=== PATIENT | male | born 1945 | race Caucasian/White ===

== ENCOUNTER 2016-05-17 05:37 | Day surgery (SDC) | payer OTHER, MEDICARE ==
--- NOTE | 2016-05-14 12:55 | PCM.ANEPRE ---
Anesthesia Pre-Op Review Reason for Review: CARDIAC HX Anesthesia Recommendations: Proceed with Procedure Additional Comments history of CAD, stent currntly walks 20K steps per day history of heart block in face of hypovolemia with GI bleed SR now. On small doses of B mona DESTINI CPAP asess airway DOS Chart Reviewed by: Snow Lopez MD May 14, 2016 12:55
[~2016-05-17] VITALS: Ht 185.4 cm; Wt 105.0 kg
[2016-05-17] VITALS (12 sets, daily range): BP systolic 122–158; BP diastolic 55–82; PULSE 46–58; RESP 9–20; O2SAT 96–100
[~2016-05-17 05:37] MED LIST: ASPI-973 PO; ATOR80TA77 PO; CHOL5000 PO; GARL10002 PO; LACT1CAP73 PO; LORA10CA PO; Lactated Ringer's 1,000 ML IV ONE; METO25TA99 PO; MULT1CAP27 PO; OMEG-38 PO; PANT40TA3 PO; SAW/1TAB2 PO; TAMS0.4C98 PO
[2016-05-17] MEDS ORDERED: Ondansetron 2 mg/mL 2 mL Inj ONE (05:38)
[2016-05-17] MEDS ORDERED: fentaNYL-PF 50 mCg/mL 2 mL Inj ONE (05:38)
[2016-05-17] MEDS ORDERED: Propofol 10,000 mCg/mL 20 mL Inj ONE (05:38)
[2016-05-17] MEDS ORDERED: Lidocaine PF 1% 30 mL Inj ONE (05:38)
[2016-05-17] MEDS ORDERED: Dexamethasone 10 mg/mL Inj IV ONE (06:00)
[2016-05-17] MEDS ORDERED: Dexamethasone Inj 20 MG in Dextrose 5%-Pha MIX 50 ML IV ONE (06:00)
[2016-05-17] MEDS ORDERED: Lactated Ringer's 1,000 ML IV ONE (06:09)
[2016-05-17] MEDS ORDERED: Lidocaine 2%-Epi 1:100,000 20 mL Inj INFILTRATE ONE (07:30)
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
[2016-05-17] MEDS ORDERED: Phenylephrine 10,000 mCg/mL Inj IVPUSH PRN (07:55)
[2016-05-17] MEDS ORDERED: Dexamethasone 4 mg/mL Inj IVPUSH PRN (07:55)
[2016-05-17] MEDS ORDERED: Atropine 0.4 mg/mL Inj IVPUSH PRN (07:55)
[2016-05-17] MEDS ORDERED: fentaNYL-PF 50 mCg/mL 2 mL Inj IVPUSH PRN (07:55)
[2016-05-17] MEDS ORDERED: Ondansetron 2 mg/mL 2 mL Inj IVPUSH PRN (07:55)
[2016-05-17] MEDS ORDERED: Lactated Ringer's 1,000 ML IV SCH (07:55)
[2016-05-17] MEDS ORDERED: EPHEDrine Sulfate 50 mg/mL Inj IVPUSH PRN (07:55)
[2016-05-17] MEDS ORDERED: MetoCLOpramide 5 mg/mL 2 mL Inj IVPUSH PRN (07:55)
[2016-05-17] MEDS ORDERED: Labetalol 5 mg/mL 4 mL Inj IV PRN (07:55)
[2016-05-17] MEDS ORDERED: HYDROmorphone 1 mg/mL Inj IVPUSH PRN (07:55)
[2016-05-17] MEDS ORDERED: hydrALAZINE 20 mg/mL Inj IVPUSH PRN (07:55)
[2016-05-17] MEDS ORDERED: Lactated Ringer's 500 ML IV PRN (07:55)
--- NOTE | 2016-05-17 08:20 | OP ---
[address] [address] OPERATIVE REPORT PATIENT: ANTOINETTE SARMIENTO : 1945 MR#: [id number] ADMIT: 05/17/2016 JOB ID: [id number] DATE OF SURGERY: PREOPERATIVE DIAGNOSIS(ES): 1. Nasal obstruction with septal deviation. 2. Turbinate hypertrophy. POSTOPERATIVE DIAGNOSIS(ES): 1. Nasal obstruction with septal deviation. 2. Turbinate hypertrophy. PROCEDURE: 1. Septoplasty. 2. Submucosal treatment of turbinates. SURGEON: Jerardo Natarajan MD HISTORY/INDICATIONS: A 70-year-old with chronic nasal obstruction with septal deviation, turbinate hypertrophy interfering with use of CPAP. DESCRIPTION OF PROCEDURE/FINDINGS: The patient was taken to the operative room, placed in the supine position on the operating table. LMA anesthesia induced. The nose was inspected. The hypertrophied turbinates were injected with 2% lidocaine 100,000 epinephrine. The septum shows significant deflection to the left with a large maxillary crest spur. Septum was injected with the same local. The nose was then packed with Afrin on cotton. After allowing adequate time for local anesthetic, the packings were removed. With a 15 blade, an incision made on the right anterior septum. With a Manuel elevator, the mucoperichondrium and periosteum were elevated. The quadrangular cartilage was dislocated from its attachments to the perpendicular plate of the ethmoid, the vomer and the maxillary crest. With a Jon stripper and Ella, the obstructing portions of the bony septum were removed, including the maxillary crest spur. The anterior incision was closed with interrupted 4-0 chromic after placing the quadrangle cartilage back in the midline. The septum is then mattressed with multiple interrupted 4-0 plain suture. Silastic splints were fashioned, placed on either side of the septum and secured with a through and through 4-0 nylon. A stab incision made on the anterior tip of the inferior turbinates bilaterally. With a [place] elevator, the turbinate bone was exposed. Portions were removed with the Ella. Further submucosal treatment was undertaken with the suction cautery. Merocel packs were placed in the nasal cavity, saturated with Afrin. The patient is awakened in the operative room, returned to the recovery room in good condition. ESTIMATED BLOOD LOSS: Less than 20 cc. SPECIMENS: None. COMPLICATIONS: None.
--- NOTE | 2016-05-17 08:21 | PCM.ANEP1 ---
Post Anesthesia Phase 1 PACU Phase 1 Assessment Date of Service: May 17, 2016 Vital Signs Vital Signs Date Time Temp Pulse Resp B/P Pulse Ox O2 Delivery O2 Flow Rate FiO2 05/17/16 08:07 36.2 58 9 123/55 100 Simple Mask 8 05/17/16 06:10 36.1 50 20 135/82 96 Room Air Anesthetic Administered: GA Level of Alertness: Sleepy, easy to arouse ALONSO's with Equal Strength: Yes Pain: No Nausea or Vomiting: No Oxygen Delivery: Simple Mask Lungs: Normal Air Movement Star Beltran MD May 17, 2016 08:20
[2016-05-17] MEDS ORDERED: HYDROmorphone 0.5 mg/0.5 mL iSecure Syringe ONE ×2 (08:22→08:31)
--- NOTE | 2016-05-17 08:56 | PCM.ANEP2 ---
Post Anesthesia Evaluation ASA/CMS Post Anesthesia Date of Service: May 17, 2016 VS in Patient's Normal Range?: Yes Resp Stable; Airway Patent?: Yes CV Function & Hydration Stable: Yes Mental Status Recovered?: Yes Pain control Satisfactory?: Yes N/V Control Satisfactory?: Yes Star Beltran MD May 17, 2016 08:56
== END 2016-05-17 23:59 | disposition home or self-care (01) ==
LOC: SAS 05:37
PROVIDERS: ATTEND Otolaryngology Facial Plastic Surgery
DX: J34.2 Deviated nasal septum (principal); J34.3 Hypertrophy of nasal turbinates; G47.33 Obstructive sleep apnea (adult) (pediatric); I10 Essential (primary) hypertension; I25.10 Atherosclerotic heart disease of native coronary artery without angina pectoris; Z95.5 Presence of coronary angioplasty implant and graft
CPT/HCPCS: 30140; 30520; J1170; J2405; J3010; J7120

== ENCOUNTER 2016-05-23 16:58 | Emergency (ER) | payer OTHER, MEDICARE ==
[~2016-05-23] VITALS: Ht 185.4 cm; Wt 105.0 kg
[~2016-05-23 16:58] MED LIST changes: -Lactated Ringer's 1,000 ML IV ONE
[2016-05-23 17:17] VITALS: BP 143/73; PULSE 55; RESP 20; O2SAT 97
--- NOTE | 2016-05-23 19:12 | ED.REPORT ---
HPI-Extremity Problem Lower Date of Service May 23, 2016 ED Provider: Héctor Garrison DO A 70 year old male with a history of spinal stenosis and cardiac stent placement presents to the ED complaining of right leg pain. The pt woke up at 03 :00 this morning due to pain in his upper right thigh radiating into his right buttock. The pt is concerned that his pain may be related to a clot and his PCP recommended that he come to the ED for a DVT study. Nursing Notes Stated Complaint: RIGHT LEG PAIN/SENT FROM DR OFFICE Chief Complaint: Extremity Trauma Nursing Notes Reviewed: Yes Allergies: Coded Allergies: Contrast Media (Verified Allergy, Severe, anaphalyxis, 05/13/16) Patient uses iodine on his skin without untoward effect. meprobamate (Verified Allergy, Severe, RESPIRATORY DISTRESS, 05/13/16) Iodinated Contrast Media - Oral and (Verified Allergy, Unknown, stops breathing, 05/13/16) oxycodone HCl (Verified Allergy, Unknown, UNKNOWN, 05/13/16) codeine (Verified Adverse Reaction, Severe, BURNING SKIN, 05/13/16) gabapentin (Verified Adverse Reaction, Severe, FATIGUE,FREQUENCY, 05/13/16) pregabalin (Verified Adverse Reaction, Severe, FATIGUE,FREQUENCY, 05/13/16) Scheduled Aspirin (Aspirin) 81 Mg Tablet 81 MG PO DAILY Atorvastatin Calcium (Atorvastatin Calcium) 80 Mg Tablet 80 MG PO HS Cholecalciferol (Vitamin D3) (Vitamin D3) 5,000 Unit Capsule 5,000 UNIT PO DAILY Garlic (Garlic) 1,000 Mg Capsule 2,000 MG PO DAILY Lactobacillus Combo No.11 (Probiotic) 1 Each Cap.sprink 1 EACH PO DAILY Metoprolol Succinate ER (Metoprolol Succinate ER) 25 Mg Tab.er.24h 25 MG PO DAILY Multivits-Min/Hrb Cb121 (Urinozinc Prostate Formula Cap) 1 Each Capsule 1 EACH PO DAILY [place]-3/Dha/Epa/Fish Oil (Fish Oil 1,000 mg Softgel) 1 Each Capsule 1 EACH PO DAILY Pantoprazole DR (Pantoprazole DR) 40 Mg Tablet.dr 40 MG PO BIDAC Saw/Vit E/Sod Rosita/Lyc/Beta/Pyg (Prostate Health Caplet) 1 Each Tablet 1 EACH PO DAILY Tamsulosin (Flomax) 0.4 Mg Capsule 0.4 MG PO BID Scheduled PRN Loratadine (Claritin) 10 Mg Capsule 10 MG PO DAILY PRN PRN allergies General Time Seen by MD: 19:12 Chief Complaint Other (Right leg pain) Hx Obtained From: Patient Arrived By: Walk-in Onset Occurred: 1 day ago Symptom Duration: Since onset Recent Healthcare: No recent hospitalization, Recent doctor visit Similar Sx Previous: No Past Medical History Past Medical History sleep apnea on CPAP spinal stenosis Past Surgical History cardiac stent placement Family History noncontributory Smoking History Never Smoker Social History Alcohol Use: Denies alcohol use Drug Use: Denies drug use Other Social History: Good social support, , Local resident 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 Respiratory: Denies: Non-productive cough Cardiovascular: Denies: Chest pain GI: Denies: Abdominal pain Physical Exam Initial Vital Signs Vital Signs (First) Date Time Temp Pulse Resp B/P Pulse Ox O2 Delivery O2 Flow Rate FiO2 05/23/16 17:17 36.4 55 20 143/73 97 Room Air Initial VS: Reviewed Lower Extremity / Pelvis / MS: Atraumatic, Full range of motion full range of motion of right leg right thigh tender to palpation Ankle / Foot: Atraumatic, Full range of motion General/Constitutional: Awake, Alert moderate distress due to pain Respiratory / Chest: Atraumatic, Breath sounds NL, Breath sounds = bilat, No respiratory distress Cardiovascular: Heart rate NL, Regular rhythm, Heart sounds NL bounding dorsalis pedis pulses strong femoral pulses Skin: Atraumatic, Color NL, No rash, Warm, Dry Neurologic: Oriented X3, Speech NL, No motor deficits, No sensory deficits Head / Eyes: Atraumatic, Normocephalic, PERRL, EOMI ENT: Atraumatic, Airway patent, Mucous membranes moist Neck: Atraumatic, Supple, Full range of motion Abdomen: Atraumatic, Soft, Non-tender Back: Atraumatic, Full range of motion Upper Extremity / MS: Atraumatic, Full range of motion Psychiatric: Affect NL, Mood NL Interpretation & Diagnostics Interpretation & Diagnostics: Hip/Pelvis X-Ray: IMPRESSION: 1. No fracture or dislocation. 2. Soft tissue calcifications. Differential diagnoses include calcific tendinitis, myositis ossificans and nonspecific dystrophic soft tissue calcification. Dictated by: Neli Booker M.D. on 05/23/2016 at 20:31 Approved by: Neli Booker M.D. on 05/23/2016 at 20:36 Venous Duplex US: IMPRESSION: No deep venous thrombosis in the right lower extremity. Dictated by: Neli Booker M.D. on 05/23/2016 at 19:37 Approved by: Neli Booker M.D. on 05/23/2016 at 19:37 Lab Results Interpretation Result Diagram: 05/23/16 1853 05/23/16 1853 Test 05/23/16 18:53 White Blood Count 6.1th/mm3 (3.8-10.1) Red Blood Count 4.76mil/mm3 (4.40-5.80) Hemoglobin 14.1g/dL (13.8-17.2) Hematocrit 41.1% (41.0-50.0) Mean Corpuscular Volume 86.3fL (81-100) Mean Corpuscular Hemoglobin 29.6pg (27.0-35.0) Mean Corpuscular Hemoglobin Concent 34.3% (32.0-37.0) Red Cell Distribution Width 14.0% (12.3-15.4) Platelet Count 138bil/L (150-400) Neutrophils (%) (Auto) 58.1% (40-74) Lymphocytes (%) (Auto) 24.1% (14-46) Monocytes (%) (Auto) 12.1% (4-12) Eosinophils (%) (Auto) 3.9% (0-5) Basophils (%) (Auto) 1.0% (0-3) Sodium Level 140mEq/L (134-144) Potassium Level 4.6mEq/L (3.5-5.2) Chloride Level 100mEq/L (97-108) Carbon Dioxide Level 27mmol/L (18-29) Blood Urea Nitrogen 21mg/dL (8-27) Creatinine 0.72mg/dL (0.76-1.27) Estimat Glomerular Filtration Rate 114mL/min (>59) Glucose Level 128mg/dL (60-99) Calcium Level 9.4mg/dL (8.5-10.1) Magnesium Level 2.0mg/dL (1.6-2.6) Total Bilirubin 0.4mg/dL (0.0-1.2) Aspartate Amino Transf (AST/SGOT) 26U/L (0-50) Alanine Aminotransferase (ALT/SGPT) 23U/L (0-44) Alkaline Phosphatase 96U/L (25-160) Total Protein 6.7g/dL (6.4-8.4) Albumin 4.0g/dL (3.4-5.0) [address] Top Tube Received (Received) Pulse Oximetry Interpretation Pulse Oximetry Interpretation: 97% on room air Pulse Oximetry: Pulse Ox normal Re-Eval/Medical Decision Med Decision/Clinical Course DVT ruled out based on ultrasound findings. Acute arterial insufficiency ruled out based on palpable pulses, warm skin and symmetric ankle blood pressures. Ankle brachial index. Emergent arterial evaluation not indicated. Fracture of pelvis ruled out. I think that Mr. Jaimes has either referred pain from his spinal stenosis or possibly strained or did something to his thigh. Most of the pain is over his tensor fascia yoli. Certainly no signs of an infection. His pain was treated completely with Dilaudid. As it were he has oral Dilaudid at home. I encouraged him to take this as prescribed and to see his doctor in follow-up on Tuesday. Source of Hx: Old records Re-Evaluation/Progress : Time of Eval: 21:02 Patient Status: Condition improved Re-Evaluation/Progress Note: Pt rechecked, who is pain free. US and radiology results are discussed. The plan for discharge is discussed. The pt understands and agrees with the plan. All questions are addressed at this time. Counseled Regarding: Diagnosis, Lab results, Need for follow-up, When/why to return to ED Discharge & Departure Impression: Primary Impression: Right thigh pain Disposition: Home Discharge Condition All VS Reviewed: Yes Condition: Stable Patient Instructions: Leg Cramps (ED), Lumbar Spinal Stenosis (ED) Additional Instructions: The ultrasound did not demonstrate evidence of a deep vein thrombosis. The ankle blood pressure is normal. You have bounding pulses in your feet. An acute arterial or venous condition seems unlikely as the cause of your pain. The x-rays show that you have no signs of fracture however you do have evidence of calcium deposition. The pain may also be related to spinal stenosis. Use the medications as prescribed from your nose surgeon. Call your doctor's office on Tuesday for follow-up. I would like you to stay off work until next week Tuesday. Do not drive tonight as you receive sedating medications. Return if any problems or any worsening symptoms. Remainder of the laboratory work was normal and reassuring. Referrals: Hossein Darden MD (PCP) Scribe Attestation Portions of this note were transcribed by aLuren Carranza. I, Dr. Garrison personally performed the history, physical exam and medical decision-making; I reviewed and confirmed the accuracy of the information in the transcribed note. Signed by: Roselyn Matias, 05/23/2016 and 21:23. copies to: Hossein Darden MD, Todd P DO May 23, 2016 19:12 LAUREN CARRANZA May 23, 2016 19:37
[2016-05-23 19:15] LABS: EOSINOPHILS % (AUTO) 3.9 % (0-5); MONOCYTES % (AUTO) 12.1 % (4-12); Mean Corpuscular Hemoglobin 29.6 pg (27.0-35.0); Mean Corpuscular Volume 86.3 fL (81-100); NEUTROPHILS % (AUTO) 58.1 % (40-74); Platelet Count 138 bil/L (150-400)
[2016-05-23] MEDS ORDERED: Ondansetron 2 mg/mL 2 mL Inj IVPUSH PRN (19:20)
--- NOTE | 2016-05-23 19:38 | DRSVH ---
PROCEDURE: US VEINOUS LEG DUPLEX UNILATERAL, RIGHT INDICATIONS: right leg pain, sent from [facility] for US TECHNIQUE: Real-time imaging, as well as color and pulse Doppler interrogation, were performed of the lower extr emity deep veins from the inguinal ligament to the popliteal fossa. COMPARISON: None. FINDINGS: The deep veins are normally compressible, and free of intraluminal thrombus. Color and pu lse Doppler demonstrate normal phasic intraluminal flow. There is normal augmentation response to di stal compression maneuver. IMPRESSION: No deep venous thrombosis in the right lower extremity. Dictated by: Neli Booker M.D. on 05/23/2016 at 19:37 Approved by: Neli Booker M.D. on 05/23/2016 at 19:37
[2016-05-23 19:52] VITALS: BP 159/81
[2016-05-23] MEDS: HYDROmorphone 0.5 mg/0.5 mL iSecure Syringe IVPUSH PRN ×2 (19:52→20:18)
[2016-05-23 19:53] VITALS: BP 164/81
--- NOTE | 2016-05-23 20:36 | DRSVH ---
PROCEDURE: X-RAY PELVIS W/LAT HIP (RT) ([id number]) INDICATIONS: right thigh and hip pain TECHNIQUE: AP pelvis with lateral view(s) of the right hip(s). COMPARISON: [facility], CT, ABD/PELVIS W/O CON (PNL), 04/11/2014, 16:34. FINDINGS: Bones: No fractures or dislocations. Pelvic ring appears intact. No suspicious bony lesions. Soft tissues: The visualized bowel gas pattern is normal. There are soft tissue calcifications/ossif ications in the medial aspect of the right thigh. IMPRESSION: 1. No fracture or dislocation. 2. Soft tissue calcifications. Differential diagnoses include calcific tendinitis, myositis ossifican s and nonspecific dystrophic soft tissue calcification. Dictated by: Neli Booker M.D. on 05/23/2016 at 20:31 Approved by: Neli Booker M.D. on 05/23/2016 at 20:36
[2016-05-23 21:05] VITALS: BP 119/59; PULSE 49; RESP 20
== END 2016-05-23 21:07 | disposition home or self-care (01) ==
LOC: SED 16:58
DX: M79.651 Pain in right thigh (principal); Z95.5 Presence of coronary angioplasty implant and graft; Z79.82 Long term (current) use of aspirin; Z88.5 Allergy status to narcotic agent; Z88.8 Allergy status to other drugs, medicaments and biological substances; Z91.041 Radiographic dye allergy status
CPT/HCPCS: 36415; 73501; 80053; 83735; 85025; 93971; 96374; 96375; 96376; 99285; J1170; J2405

== ENCOUNTER 2016-06-05 12:19 | Inpatient (IN) | payer OTHER, MEDICARE ==
[~2016-06-05] VITALS: Ht 185.4 cm; Wt 114.8 kg
[2016-06-05] VITALS (7 sets, daily range): BP systolic 108–188; BP diastolic 31–69; PULSE 60–101; RESP 16–20; O2SAT 88–96
--- NOTE | 2016-06-05 12:37 | ED.REPORT ---
HPI-Back Pain 40 and Over Date of Service Jun 05, 2016 ED Provider: Orlando Rodríguez MD Patient is a 70 year old male with a history of a laminectomy who presents to the ED after being referred by his PCP complaining of lower back pain onset 2 weeks ago without a known mechanism of injury. Associated symptoms include R leg pain secondary to his back pain and weakness in the R leg. His weakness has gotten increasingly worse since his pain started 2 weeks ago. His pain has been increasing the last two days and has not had relief with PO Dilaudid (4 mg every 4-6 hrs). He denies numbness, incontinence, saddle numbness, fever, or any other symptoms. He has an MRI scheduled in 5 days. Before the onset of his symptoms he was ambulatory but is now using a walker. Nursing Notes Stated Complaint: LOWER BACK PAIN Chief Complaint: Back Pain or Injury Nursing Notes Reviewed: Yes Allergies: Coded Allergies: Contrast Media (Verified Allergy, Severe, anaphalyxis, 05/13/16) Patient uses iodine on his skin without untoward effect. meprobamate (Verified Allergy, Severe, RESPIRATORY DISTRESS, 05/13/16) Iodinated Contrast Media - Oral and (Verified Allergy, Unknown, stops breathing, 05/13/16) oxycodone HCl (Verified Allergy, Unknown, UNKNOWN, 05/13/16) codeine (Verified Adverse Reaction, Severe, BURNING SKIN, 05/13/16) gabapentin (Verified Adverse Reaction, Severe, FATIGUE,FREQUENCY, 05/13/16) pregabalin (Verified Adverse Reaction, Severe, FATIGUE,FREQUENCY, 05/13/16) Scheduled Aspirin (Aspirin) 81 Mg Tablet 81 MG PO DAILY Atorvastatin Calcium (Atorvastatin Calcium) 80 Mg Tablet 80 MG PO HS Cholecalciferol (Vitamin D3) (Vitamin D3) 5,000 Unit Capsule 5,000 UNIT PO DAILY Garlic (Garlic) 1,000 Mg Capsule 2,000 MG PO DAILY Lactobacillus Combo No.11 (Probiotic) 1 Each Cap.sprink 1 EACH PO DAILY Metoprolol Succinate ER (Metoprolol Succinate ER) 25 Mg Tab.er.24h 25 MG PO DAILY Multivits-Min/Hrb Cb121 (Urinozinc Prostate Formula Cap) 1 Each Capsule 1 EACH PO DAILY [place]-3/Dha/Epa/Fish Oil (Fish Oil 1,000 mg Softgel) 1 Each Capsule 1 EACH PO DAILY Pantoprazole DR (Pantoprazole DR) 40 Mg Tablet.dr 40 MG PO BIDAC Saw/Vit E/Sod Rosita/Lyc/Beta/Pyg (Prostate Health Caplet) 1 Each Tablet 1 EACH PO DAILY Tamsulosin (Flomax) 0.4 Mg Capsule 0.4 MG PO BID Scheduled PRN Loratadine (Claritin) 10 Mg Capsule 10 MG PO DAILY PRN PRN allergies General Time Seen by MD: 12:36 Chief Complaint Back pain Hx Obtained From: Patient Arrived By: Walk-in Sudden in Onset?: Yes Onset Occurred: More than a week ago... (2 weeks) Past Medical History Past Medical History sleep apnea on CPAP spinal stenosis Lower extremity neuropathy GI bleed Reports: Coronary artery disease, Hyperlipidemia Reports: Depression Past Surgical History cardiac stent placement Laminectomy Knee replacement Bilat shoulder and wrist Lithotripsy Family History noncontributory Smoking History Never Smoker Social History Alcohol Use: Denies alcohol use Drug Use: Denies drug use Other Social History: Good social support, , Local resident Occupation [employer] at [employer] - recent shift changes that have been stressful Ambulatory Status Walker Review of Systems -saddle numbness Constitutional: Denies: Fever Male: Denies Incontinence Musculoskeletal: Reports: Back pain, Extremity pain (R leg ) Neurologic: Reports: Weakness (R leg), Denies: Numbness Complete sys rev & neg: except as marked. Physical Exam Initial Vital Signs Vital Signs (First) Date Time Temp Pulse Resp B/P Pulse Ox O2 Delivery O2 Flow Rate FiO2 06/05/16 12:22 36.8 80 20 114/56 93 Room Air Initial VS: Reviewed Head / Eyes: Atraumatic, Normocephalic Skin: Warm, Dry Psychiatric: Mood/affect normal, Behavior normal, Normal thought content General/Constitutional: Awake, Alert, Well developed Respiratory / Chest: No respiratory distress Cardiovascular: Heart rate NL Abdomen: Soft, Non-tender Back: Atraumatic Tender over L5-S1 Neurologic: Oriented X3, Speech NL Gait Abnormality: Positive: Walks with assistance Interpretation & Diagnostics Lab Results Interpretation Lab Results Interpretation: LUMBAR SPINE MRI: IMPRESSION: 1. A disc herniation is not present. 2. The degenerative disc disease along the lumbosacral spine is relatively mild but facet osteoarthritis is quite pronounced and results in both spinal and foraminal stenosis as discussed in detail by level in the body of the report above. Multilevel foraminal stenosis is present to the degree that there is risk for multilevel nerve root impingement. A discrete source of current asymmetric no right lower extremity weakness is not seen, however. 3. Postoperative distortion is present dorsal to the L34 and L4-5 levels of the lumbosacral spine. L4 laminectomy bilaterally appears to have been performed. Dictated by: Guy Hunt M.D. on 06/05/2016 at 14:04 Approved by: Guy Hunt M.D. on 06/05/2016 at 14:19 Re-Eval/Medical Decision Med Decision/Clinical Course 70-year-old male history of laminectomy 10 years ago presenting with worsening low back pain several weeks. Reports it radiates down right leg. Reports weakness times several weeks right lower extremity not worsening over the last couple days. No numbness, incontinence. No gait changes. MRI was performed which shows extensive foraminal stenosis and lumbar disease. There is no indication for immediate neurosurgical intervention today. Patient will be discharged home with plans to follow up with primary doctor on Tuesday to discuss options possible neurosurgical referral. Return precautions given. Re-Evaluation/Progress : Time of Eval: 15:31 Re-Evaluation/Progress Note: Patient is asleep. Discussed MRI results with patient's and need for neurology follow up. Discussed plan for discharge. Patient's understands and agrees with plan. All questions addressed at this time. Counseled Regarding: Diagnosis, Lab results, Need for follow-up, When/why to return to ED Discharge & Departure Impression: Primary Impression: Low back pain Additional Impression: Lumbar foraminal stenosis Disposition: Home Discharge Condition All VS Reviewed: Yes Condition: Stable Patient Instructions: Acute Low Back Pain (ED) Additional Instructions: Thank you for entrusting us with your care today. Your MRI is reassuring but you should follow up with a neurologist. Please follow up with your primary care provider on Tuesday. Return to the emergency department of you experience weakness, tingling, incontinence, fever, gait disturbances, or any other new or worsening symptoms. Referrals: Hossein Darden MD (PCP) Scribe Attestation Portions of this note were transcribed by Carisa Blakely. I, Dr. Rodríguez personally performed the history, physical exam and medical decision-making; I reviewed and confirmed the accuracy of the information in the transcribed note. Signed by: Carisa Blakely 06/05/16, [id number] copies to: Hossien Darden MD, Ben M MD Jun 05, 2016 12:37 CARISA BLAKELY Jun 05, 2016 12:54
[2016-06-05] MEDS ORDERED: Ondansetron 2 mg/mL 2 mL Inj IVPUSH PRN ×2 (13:10→23:15)
[2016-06-05] MEDS: HYDROmorphone 1 mg/mL Inj IVPUSH PRN ×5 (13:36→23:28)
--- NOTE | 2016-06-05 15:21 | DRSVH ---
PROCEDURE: MRI LUMBAR SPINE WITHOUT CONTRAST ([id number]) INDICATIONS: Low back pain RLE weakness TECHNIQUE: Noncontrast sagittal T1 spin echo and T2 fast echo, sagittal STIR, axial T1 and T2 fast spin echo thr ough the lumbar spine. In cases with scoliosis, additional coronal T2 fast spin echo may be performe d. COMPARISON: [facility] , MR, LUMBAR SPINE W/O CONTRAST, 02/05/2009, 12:44. FINDINGS: Image quality: Excellent. Alignment and Curvature: There is normal bony alignment. Bone Marrow: Marrow is of normal overall signal. No acute vertebral body compression fractures. Spinal Cord: Conus medullaris terminates at the L1 level. Visualized cord demonstrates normal signa l and size. Paraspinous Soft Tissues: No paravertebral masses. T12-L1: There is a mild degree of degenerative disc disease but a moderate degree of facet osteoarth ritis greater on the right than the left with arthritic spurring impinging against the right posterol ateral low thoracic cord seen on both axial and sagittal imaging posteriorly. Mild ligamentum flavum hypertrophy is associated but without significant additional spinal stenosis. L1-L2: Mild degenerative disc disease but moderately severe bilateral facet osteoarthritis producing mild foraminal stenosis symmetric bilaterally. There is potential for mild impingement on the cours e of the L1 nerve roots equally. L2-L3: Mild degenerative disc disease but near severe facet osteoarthritis with fibrous and osseous hypertrophy and ligamentum flavum hypertrophy that appears symmetric. This produces a moderate degre e of spinal stenosis, just below the foramen level, when combined with ligamentum flavum hypertrophy that is moderate in severity at that level and Concentric bilaterally. L3-L4: A mild to moderate degenerative disc disease, small posterior broad-based disc bulge. There is a moderately severe degree of facet osteoarthritis, slightly greater on the left than the right, r esulting in a mild spinal stenosis greater on the left than the right at that level. Left greater th an right mild impingement on the course of the L3 nerve root could be present. Posterior soft tissue distortion consistent with prior operative intervention. L4-L5: Mild to moderate degenerative disc disease, but there is moderately severe facet osteoarthrit is. This is symmetric, with mild to moderate foraminal stenosis and potential for symmetric impingem ent on the course of the L4 nerve roots. Postoperative tissue distortion dorsally consistent with pr ior operative procedure at this level. L5-S1: Degenerative disc disease at this level is mild, facet osteoarthritis is near severe. This a ppears very slightly greater on the right than the left, with likelihood of asymmetric impingement ri ght greater than left on the L5 nerve roots. IMPRESSION: 1. A disc herniation is not present. 2. The degenerative disc disease along the lumbosacral spine is relatively mild but facet osteoarthr itis is quite pronounced and results in both spinal and foraminal stenosis as discussed in detail by level in the body of the report above. Multilevel foraminal stenosis is present to the degree that t here is risk for multilevel nerve root impingement. A discrete source of current asymmetric no right lower extremity weakness is not seen, however. 3. Postoperative distortion is present dorsal to the L34 and L4-5 levels of the lumbosacral spine. L4 laminectomy bilaterally appears to have been performed. Dictated by: Guy Hunt M.D. on 06/05/2016 at 14:04 Approved by: Guy Hunt M.D. on 06/05/2016 at 14:19
[2016-06-05] MEDS ORDERED: HYDR2TAB28 PO ×2 (15:46→21:52)
[2016-06-05 18:43] LABS: BASOPHILS % (AUTO) 0.1 % (0-3); EOSINOPHILS % (AUTO) 0.2 % (0-5); MONOCYTES % (AUTO) 12.8 % (4-12); Mean Corpuscular Hemoglobin 29.3 pg (27.0-35.0); Mean Corpuscular Volume 87.5 fL (81-100); NEUTROPHILS % (AUTO) 82.7 % (40-74); Platelet Count 128 bil/L (150-400)
[2016-06-05] MEDS ORDERED: HYDROmorphone 1 mg/mL Inj IVPUSH ONE (18:45)
[2016-06-05] MEDS ORDERED: levoFLOXacin Inj 750 MG in IV Premix 1 EACH IV ONE (19:40)
--- NOTE | 2016-06-05 19:48 | DRSVH ---
PROCEDURE: X-RAY CHEST, TWO VIEWS ([id number]) INDICATIONS: fever, back pain TECHNIQUE: 2 views of the chest were acquired. COMPARISON: None. FINDINGS: Surgical changes and devices: None. Lungs and pleura: No pleural effusions or pneumothorax. Lungs are clear. Mediastinum: Mediastinal contours are normal. Heart size is normal. Bones and chest wall: No suspicious bony abnormalities. Soft tissues appear unremarkable. IMPRESSION: No acute process. Dictated by: Juan M Cabrera M.D. on 06/05/2016 at 19:46 Approved by: Juan M Cabrera M.D. on 06/05/2016 at 19:46
[2016-06-05] MEDS ORDERED: 0.9% Sodium Chloride 1,000 ML IV ONE (20:48)
[2016-06-05] MEDS ORDERED: CLOP75TA3 PO (21:26)
[2016-06-05 21:54] LABS: APPEARANCE,URINE HAZY (CLEAR,HAZY); COLOR,URINE YELLOW (YELLOW); OCCULT BLOOD,URINE SMALL (NEGATIVE); UROBILINOGEN,URINE NORMAL (NORMAL)
[2016-06-05] MEDS ORDERED: Alum-Mag Hydrox-Simeth 30 mL Suspension PO PRN (23:15)
[2016-06-06] VITALS (16 sets, daily range): BP systolic 96–156; BP diastolic 47–65; PULSE 55–81; RESP 15–22; O2SAT 94–98
--- NOTE | 2016-06-06 00:10 | NUR ---
Admission Note Pt admitted to [facility] from ER on stretcher at 2350, alert and orientedx3, [place], c/o pain at lower back 5/10, radiated to right hip and leg, Dilaudid administered prior to arrival at ER, denies SOB//cough/chest pain/N/V/dysuria/urinary burning sensation, but urinary retention r/o BPH, 750ml urine out by in and out cath at ER,and difficulty insertion of catheter per COOKIE BREAKER report. Chills, shaking, fever39.2 and Levaquin administered at ER per report, resolved, current T 37.1. Lung sounds clear, HR regular, no murmur,Tele applied, abdomen soft, tenderness at LQ, BT active.No edema at bilateral LEs. BP156/64 HR 94,RR20, SPO2 94% on O2 2L per nc. Pt oriented call MD garrison in pt room,waiting for orders. Care ongoing.
[2016-06-06] MEDS ORDERED: MetoCLOpramide 5 mg/mL 2 mL Inj IVPUSH PRN (00:40)
[2016-06-06] MEDS: Dextrose 5% 500 ML IV SCH ×2 (01:49→14:20)
[2016-06-06] MEDS: HYDROmorphone PCA 0.2 mg/mL 30 mL Inj IV PRN (01:56)
[2016-06-06] MEDS ORDERED: 0.9% Sodium Chloride 1,000 ML IV SCH (02:00)
--- NOTE | 2016-06-06 02:05 | PCM.HPMED ---
Subjective Date of Service Jun 06, 2016 Primary Provider: Admitting Physician: Katharina Jolley DO Primary Care Physician: Hossein Darden MD Attending Physician: Katharina Jolley DO Chief Complaint: Severe low back pain History of Present Illness: Patient is a 70 year old male with a history of CAD s/p stenting, BPH, and peripheral neuropathy. He presented to [facility] on 06/05/16 with severe low back pain. The back pain began May 22 and awakened him in the middle of the night. He had difficulty finding a comfortable position in bed at that time. When attempting to get out of bed he had pain going down his right leg making it difficult to ambulate. He tried to go to work the next day and was sent home as he was looking so miserable. He called his PCP and was given dilaudid PO 2 mg to be taken Q6. Lumbar spin MRI was ordered but due to insurance issues could not be performed at this stage. This helped at first but then the pain worsened and he was instructed to take the dilaudid Q4. MRI was then approved but could not be done until 06/11/15. The pain continued to worsen and the dosing was increased again to 4 mg Q4. The morning of June 05 the patient was feeling poorly. Upon waking he was experiencing generalized shaking and spent an hour in the shower warming up. Later in the day he reports experiencing a fever. By the afternoon his pain was so poorly controlled he decided to seek treatment in the ED. Over the past few days he denies cough, sputum production, or other cold/flu like symptoms. He has had no chest pain, palpitations, shortness of breath, dizziness/lightheadedness, or syncopal episodes. This morning he experienced nausea but no vomiting and the nausea has since resolved completely. He denies diarrhea and was constipated the last couple of weeks. He has experienced no dysuria or hematuria. Due to his BPH he often has difficulty initiating urination. In the ED the patient was initially afebrile with a heart rate of 80, respiratory rate of 20, blood pressure 114/56, and O2 saturation 93% on room air. On re-check patient became febrile at 39.2. Labs remarkable for WBC 15.2. Concern for possible UTI with urine WBC 11-50. Levaquin initiated in ED. Patient to be admitted for pain control and additional infection work-up. Review of Systems: A comprehensive review of systems was conducted with the patient and found to be negative except as above in the history of present illness. Allergies Coded Allergies: Contrast Media (Verified Allergy, Severe, anaphalyxis, 05/13/16) Patient uses iodine on his skin without untoward effect. meprobamate (Verified Allergy, Severe, RESPIRATORY DISTRESS, 05/13/16) Iodinated Contrast Media - Oral and (Verified Allergy, Unknown, stops breathing, 05/13/16) oxycodone HCl (Verified Allergy, Unknown, UNKNOWN, 05/13/16) codeine (Verified Adverse Reaction, Severe, BURNING SKIN, 05/13/16) gabapentin (Verified Adverse Reaction, Severe, FATIGUE,FREQUENCY, 05/13/16) pregabalin (Verified Adverse Reaction, Severe, FATIGUE,FREQUENCY, 05/13/16) Home Medications Per patient: Aspirin 81 mg daily Atorvastatin 80 mg HS Metoprolol succinate 25 mg daily Protonix 40 mg daily Tamsulosin 0.4 mg BID Biotene mouthwash PMH CAD s/p LAD stenting Hyperlipidemia History of bradycardia BPH History of nephrolithiasis Peripheral neuropathy GERD Surgical History Left heart cath March 2015 Bilateral shoulder repair Carpal tunnel release Neck surgery Sinus surgery L4 laminectomy Left total knee replacement Family History Father had CHF Social History 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 [employer] Alcohol Use: No Hx Substance Use: No Hx Tobacco Use: No Smoking Status: Never Smoker Living Arrangement: with Family Spiritual Support Patient belongs to Religion of [facility] Exam Vital Signs Vital Sign - Last Date Time Temp Pulse Resp B/P Pulse Ox O2 Delivery O2 Flow Rate FiO2 06/05/16 23:28 72 20 128/47 96 Nasal Cannula 2 06/05/16 20:02 37.6 Intake and Output 06/05/16 06/05/16 06/06/16 Cumulative From/Thru 15:00 23:00 07:00 06/05/16 12:22 - 06/05/16 21:11 Intake Total 1000 ml 1000 ml Output Total 750 ml 750 ml Balance 250 ml 250 ml Intake IV Total 1000 ml 1000 ml Output Urine Total 750 ml 750 ml Exam Alert and oriented x3, significant distress and rigors Head atraumatic, normocephalic PERRLA, EOMI, sclera anicteric Mucus membranes dry, possible oral thrush observed No cervical lymphadenopathy, neck supple, nontender No JVD noted Cardiac tones regular rate and rhythm with no murmur appreciated Lungs clear to auscultation bilaterally with adequate respiratory effort No abdominal tenderness, non-distended, normoactive bowel tones, soft Fleming absent Radial pulses normal and equivalent bilaterally, dorsalis pedis pulses difficult to appreciate bilaterally No cyanosis, clubbing; mild pitting edema in bilateral lower extremities No ulcerations/open wounds Cranial nerves appear to be fully intact, normal speech, patient can move upper and lower limbs grossly; Right patellar reflex normal, left diminished (hx of total knee); sensation diminished below the knee in both lower extremities Lab and Diagnostics Result Diagram: 06/05/16 1826 06/05/16 182 X-Rays, CTs and MRIs PROCEDURE: MRI LUMBAR SPINE WITHOUT CONTRAST IMPRESSION: 1. A disc herniation is not present. 2. The degenerative disc disease along the lumbosacral spine is relatively mild but facet osteoarthritis is quite pronounced and results in both spinal and foraminal stenosis as discussed in detail by level in the body of the report above. Multilevel foraminal stenosis is present to the degree that there is risk for multilevel nerve root impingement. A discrete source of current asymmetric no right lower extremity weakness is not seen, however. 3. Postoperative distortion is present dorsal to the L34 and L4-5 levels of the lumbosacral spine. L4 laminectomy bilaterally appears to have been performed. Dictated by: Guy Hunt M.D. on 06/05/2016 at 14:04 PROCEDURE: X-RAY CHEST, TWO VIEWS IMPRESSION: No acute process. Dictated by: Juan M Cabrera M.D. on 06/05/2016 at 19:46 CT abdomen and pelvis: CONCLUSION: Mild enlargement of the appendix. Early appendicitis should be considered clinically. Diverticulosis without evidence of diverticulitis. Daryn Black MD - [facility] radiologist Assessment & Plan Patient is a 70 year old male with a history of CAD s/p stenting, BPH, and peripheral neuropathy. He presented to [facility] on 06/05/16 with severe low back pain. As he was about to be discharged from the ED the patient was noted to have a fever of 39.2. Infection work up initiated and levaquin given. Patient admitted for management of his pain and further evaluation of his possible infection. 1. Sepsis, acute, present on admission. - Criteria met: Fever (39.2) and leukocytosis (15.2). Possible urinary tract source. - CT abd/pelvis indicated mildly enlarged appendix. No exam findings to currently support diagnosis of appendicitis. Will await formal radiologist read. Continue to monitor abdomen. - Awaiting blood and urine cultures. - Procalcitonin ordered and pending. - IV NS to be given at 100 ml/hr x1 bag. Re-evaluate in AM. - Levaquin given in ED. Will continue at this time - plan to refine antibiotic choice when culture data returns. Consider discontinuing ABX if cultures come back negative. - Repeat CBC in AM. 2. Acute low back pain, present on admission. - MRI shows multilevel foraminal stenosis making the risk of nerve impingement high. - Due to patient requiring high doses of PO dilaudid in the outpatient setting will start DIRECTOR OF ADMISSIONS hydromorphone at this time. - Consider neurology or neurosurgery consultation for further evaluation. 3. Possible oral thrush, acute, present on admission. - Patient complaining of dry mouth and burning with drinking fluids. - Tongue scrapings to be sent to lab for further evaluation. - Based on lab results, consider initiating nystatin swish and swallow. 4. CAD s/p LAD stenting, chronic, presume stable. - Continue home meds: ASA 81 mg daily, atorvastatin 80 mg HS, metoprolol succinate 25 mg daily. 5. Benign prostatic hyperplasia, chronic, presume stable. - Continue tamsulosin 0.4 mg BID. 6. Peripheral neuropathy, chronic, presume stable. - Not related to diabetes. History of L4 laminectomy - Not on any medication as he did not tolerate gabapentin or Lyrica. - Antiemetic available PRN. - Bowel regimen available PRN. - Antacid available PRN. - Tylenol available PRN mild pain, fever. Patient admitted under inpatient status with expected length of stay greater than 2 midnights for severity of present symptoms, complexities of treatment plan and risk for adverse events. PCP Hossein Darden MD [employer]forming [employer] Operator Vladimir Abbott MD GI Prophylaxis: Proton Pump Inhibitor VTE Prophylaxis: Sub-Q Enoxaparin Resuscitation Status: CPR: Attempt Resuscitation Attending Statement The patient was seen and examined together with house staff on 06/05/2016 and I agree with the history, exam and plan as outlined in the note above. copies to: Hossein Darden MD, Jennifer E DO Jun 06, 2016 01:03 Katharina Jolley DO Jun 06, 2016 04:35
--- NOTE | 2016-06-06 07:15 | DRSVH ---
PROCEDURE: CT ABDOMEN AND PELVIS WITHOUT CONTRAST ([id number]) INDICATIONS: 70 year-old male with right lower quadrant abdominal pain, fever and chills. TECHNIQUE: Intravenous contrast was not administered due to allergy to iodinated contrast. Noncontrast 5 mm thic k sections acquired from the diaphragms to the symphysis. 5 mm coronal and sagittal reformats were t hen performed. For radiation dose reduction, the following was used: automated exposure control, ad justment of mA and/or kV according to patient size. COMPARISON: [facility], CT, ABD/PELVIS W/O CON (PN), 04/11/2014, 16:34. FINDINGS: Preliminary interpretation rendered by [facility]. Image quality: Excellent. ABDOMEN: Lung bases: Lung bases are clear, except for linear posterior left lung base scarring. Heart size i s normal. Solid organs: Liver and spleen are normal in size. Gallbladder wall thickness is normal. Pancreas is normal in contours. No adrenal nodules. Kidneys are normal in size, without hydronephrosis or ne phrolithiasis. Peritoneum and bowel: Unenhanced bowel loops demonstrate normal wall thickness and caliber. The nadege endix is upper normal in diameter at 7 mm on axial image 47, without surrounding inflammatory fat str anding. There is descending and sigmoid colon diverticulosis. No free fluid or air. Nodes and vessels: No retroperitoneal or mesenteric adenopathy by size criteria. Aorta and inferior vena cava are normal in caliber, with scattered aortoiliac atherosclerosis. Miscellaneous: No ventral hernias. PELVIS: Genitourinary: Bladder wall thickness is normal. Prostate gland is normal in size. Miscellaneous: No inguinal hernias or adenopathy. Bones: No suspicious bony lesions. No vertebral body compression fractures. Patient is status post resection of the L4 spinous process, as well as inferior portions of the L3 spinous process. There i s overlying curvilinear dystrophic calcification around the paraspinous muscles. IMPRESSION: 1. Appendix is upper normal in caliber, without secondary findings to suggest acute appendicitis. 2. Descending and sigmoid colon diverticulosis, without acute diverticulitis. No significant discrepancy with preliminary [facility] report. Dictated by: Hector Mejia M.D. on 06/06/2016 at 7:03 Approved by: Hector Mejia M.D. on 06/06/2016 at 7:14
--- NOTE | 2016-06-06 07:45 | PCM.PNMED ---
Subjective Date of Service Jun 06, 2016 Exam Vital Signs Vital Sign - Last Date Time Temp Pulse Resp B/P Pulse Ox O2 Delivery O2 Flow Rate FiO2 06/06/16 06:38 18 95 06/06/16 05:31 81 06/06/16 04:50 37.3 138/52 Nasal Cannula 2.00 Intake and Output 06/05/16 06/05/16 06/06/16 Cumulative From/Thru 15:00 23:00 07:00 06/05/16 12:22 - 06/06/16 06:39 Intake Total 1000 ml 308 ml 1308 ml Output Total 750 ml 750 ml Balance 250 ml 308 ml 558 ml IV Total 1000 ml 308 ml 1308 ml Output Urine Total 750 ml 750 ml Lab and Diagnostics Result Diagram: 06/05/16182506/05/161825 X-Rays, CTs and MRIs PROCEDURE: MRI LUMBAR SPINE WITHOUT CONTRAST IMPRESSION: 1. A disc herniation is not present. 2. The degenerative disc disease along the lumbosacral spine is relatively mild but facet osteoarthritis is quite pronounced and results in both spinal and foraminal stenosis as discussed in detail by level in the body of the report above. Multilevel foraminal stenosis is present to the degree that there is risk for multilevel nerve root impingement. A discrete source of current asymmetric no right lower extremity weakness is not seen, however. 3. Postoperative distortion is present dorsal to the L34 and L4-5 levels of the lumbosacral spine. L4 laminectomy bilaterally appears to have been performed. Dictated by: Guy Hunt M.D. on 06/05/2016 at 14:04 PROCEDURE: X-RAY CHEST, TWO VIEWS IMPRESSION: No acute process. Dictated by: Juan M Cabrera M.D. on 06/05/2016 at 19:46 CT abdomen and pelvis: IMPRESSION: 1. Appendix is upper normal in caliber, without secondary findings to suggest acute appendicitis. 2. Descending and sigmoid colon diverticulosis, without acute diverticulitis. No significant discrepancy with preliminary Nightshift report. Dictated by: Hector Mejia M.D. on 06/06/2016 at 7:03 . Assessment & Plan Agree with plan as outlined by Dr. Morris below: Patient is a 70 year old male with a history of CAD s/p stenting, BPH, and peripheral neuropathy. He presented to [facility] on 06/05/16 with severe low back pain. As he was about to be discharged from the ED the patient was noted to have a fever of 39.2. Infection work up initiated and levaquin given. Patient admitted for management of his pain and further evaluation of his possible infection. 1. Sepsis, acute, present on admission. - Criteria met: Fever (39.2) and leukocytosis (15.2). Possible urinary tract source. - CT abd/pelvis indicated mildly enlarged appendix. No exam findings to currently support diagnosis of appendicitis. Will await formal radiologist read. Continue to monitor abdomen. - Awaiting blood and urine cultures. - Procalcitonin ordered and pending. - IV NS to be given at 100 ml/hr x1 bag. Re-evaluate in AM. - Levaquin given in ED. Will continue at this time - plan to refine antibiotic choice when culture data returns. Consider discontinuing ABX if cultures come back negative. - Repeat CBC in AM. 2. Acute low back pain, present on admission. - MRI shows multilevel foraminal stenosis making the risk of nerve impingement high. - Due to patient requiring high doses of PO dilaudid in the outpatient setting will start NAVAL DESIGNER hydromorphone at this time. - Consider neurology or neurosurgery consultation for further evaluation. 3. Possible oral thrush, acute, present on admission. - Patient complaining of dry mouth and burning with drinking fluids. - Tongue scrapings to be sent to lab for further evaluation. - Based on lab results, consider initiating nystatin swish and swallow. 4. CAD s/p LAD stenting, chronic, presume stable. - Continue home meds: ASA 81 mg daily, atorvastatin 80 mg HS, metoprolol succinate 25 mg daily. 5. Benign prostatic hyperplasia, chronic, presume stable. - Continue tamsulosin 0.4 mg BID. 6. Peripheral neuropathy, chronic, presume stable. - Not related to diabetes. History of L4 laminectomy - Not on any medication as he did not tolerate gabapentin or Lyrica. - Antiemetic available PRN. - Bowel regimen available PRN. - Antacid available PRN. - Tylenol available PRN mild pain, fever. Patient admitted under inpatient status with expected length of stay greater than 2 midnights for severity of present symptoms, complexities of treatment plan and risk for adverse events. PCP Hossein Darden MD Vocational Guidance Counselor Vladimir Abbott MD GI Prophylaxis: Proton Pump Inhibitor VTE Prophylaxis: Sub-Q Enoxaparin VTE Mechanical Devices: Intermittant Pneumatic CD Resuscitation Status: CPR: Attempt Resuscitation Attending Statement The patient was seen and examined together with Dr. Boyer on 06/06/16 and I agree with the history, exam and plan as outlined in the note above. Brittni Boyer DO Jun 06, 2016 07:44 Yovana Nagy DO Jun 07, 2016 13:11
[2016-06-06] MEDS: Polyethylene Glycol (PEG) 17 Gm Powder PO PRN (08:22)
[2016-06-06] MEDS: Pantoprazole 40 mg ER24 Tablet PO SCH (08:22)
[2016-06-06] MEDS: MeTOProlol XL 25 mg ER24 Tablet PO SCH (08:22)
[2016-06-06 08:31] LABS: BASOPHILS % (AUTO) 0.2 % (0-3); EOSINOPHILS % (AUTO) 0.8 % (0-5); MONOCYTES % (AUTO) 11.5 % (4-12); Mean Corpuscular Hemoglobin 29.6 pg (27.0-35.0); Mean Corpuscular Volume 88.6 fL (81-100); NEUTROPHILS % (AUTO) 79.5 % (40-74); Platelet Count 132 bil/L (150-400)
[2016-06-06 09:10] LABS: Magnesium 1.8 mg/dL (1.6-2.6); Phosphorus 2.4 mg/dL (2.5-4.9)
--- NOTE | 2016-06-06 10:54 | NUR ---
02 Pt on 2L at beginning of shift, 02 sats 100%. Placed on RA, 96%. CPOX in place, will continue to monitor. Educated pt to notify staff if feeling SOB.
[2016-06-06] MEDS: Sodium Chloride NAS 45 mL Spray NASAL PRN (14:20)
--- NOTE | 2016-06-06 16:11 | NUR ---
Social Work- Initial Assessment Attempt SW attempted assessment with pt at bedside. SW unable to complete assessment as Doctor was working with pt at this time. Freida Edouard MSW
--- NOTE | 2016-06-06 17:43 | NUR ---
Evaluation completed. Please go to "Notes" then click on "Assessments and Notes" (bottom left corner of screen). Then select appropriate discipline tab on top of screen.
--- NOTE | 2016-06-06 18:35 | NUR ---
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 He did require a bolus when working with PT this afternoon. He remains on RA, 02 has been high 90's all day. Pt c/o feeling constipated, PRN stool softeners given this AM with no result thus far. BT hyperactive. Currently sitting up in saleem chair, call light in reach.
[2016-06-06] MEDS ORDERED: levoFLOXacin Inj 500 MG in IV Premix 1 EACH IV SCH (20:00)
[2016-06-07] VITALS (11 sets, daily range): BP systolic 96–151; BP diastolic 51–63; PULSE 50–78; RESP 16–24; O2SAT 94–99
[2016-06-07] MEDS: HYDROmorphone PCA 0.2 mg/mL 30 mL Inj IV PRN (04:34)
--- NOTE | 2016-06-07 04:42 | NUR ---
Pain Pt c/o back pain 3/10 at evening, 7/10 from MN, increase with activities. DREDGE CAPTAIN Dilaudid 0.1mg/10min/0.6mg 1hour limit used, bolus dose 0.6mg given in total. Pt refuses ice back because "it does not work" per pt. Pt frequently change position, c/o bed not comfortable, "mattress too hard". The bed pt currently used is the better one compared with regular beds, inflatable air mattress requested from CS, will placed on bed when pt get up.
[2016-06-07 06:17] LABS: BASOPHILS % (AUTO) 0.3 % (0-3); EOSINOPHILS % (AUTO) 1.6 % (0-5); MONOCYTES % (AUTO) 8.5 % (4-12); Mean Corpuscular Hemoglobin 29.3 pg (27.0-35.0); Mean Corpuscular Volume 87.1 fL (81-100); NEUTROPHILS % (AUTO) 76.5 % (40-74); Platelet Count 153 bil/L (150-400)
[2016-06-07 06:41] LABS: Magnesium 1.9 mg/dL (1.6-2.6); Phosphorus 2.5 mg/dL (2.5-4.9)
[2016-06-07] MEDS: MeTOProlol XL 25 mg ER24 Tablet PO SCH (08:31)
[2016-06-07] MEDS: Pantoprazole 40 mg ER24 Tablet PO SCH (08:31)
[2016-06-07] MEDS: Polyethylene Glycol (PEG) 17 Gm Powder PO PRN (08:39)
--- NOTE | 2016-06-07 12:22 | PCM.PNMED ---
Subjective Date of Service Jun 07, 2016 Subjective Mr Jaimes reports he is still in a lot of pain despite the Dilaudid ASPHALT MIXER. He reports that his pain is mostly at his right lower back and also radiates down his right leg medially. He has had spinal surgery for this problem in the past, but the pain has been worsening in the past year due to inability to use NSAIDs secondary to a GI bleed. He is also having a lot of spasms that worsen the pain. He has not noticed any flank pain, fevers, CP, SOB, or chills. He reports he did have a nasal septal surgery on the 05/17/[address] Natarajan, ENT. He reports it was performed at [facility] surgery and he did have a hill catheter placed. He does not remember if he had any Prednisone with this surgical intervention or not. He does not use any steroids at baseline. He continues to have burning sensation of his tongue and roof of his mouth also. Exam Vital Signs Vital Sign - Last Date Time Temp Pulse Resp B/P Pulse Ox O2 Delivery O2 Flow Rate FiO2 06/07/16 04:35 16 96 06/07/16 04:32 36.8 78 121/56 Room Air 06/06/16 04:50 2.00 Intake and Output 06/06/16 06/06/16 06/07/16 Cumulative From/Thru 15:00 23:00 07:00 06/05/16 12:22 - 06/07/16 06:50 Intake Total 1415 ml 1276 ml 1063 ml 5062 ml Output Total 400 ml 1600 ml 2150 ml 4900 ml Balance 1015 ml -324 ml -1087 ml 162 ml Intake Oral 756 ml 1276 ml 838 ml 2870 ml IV Total 659 ml 225 ml 2192 ml Output Urine Total 400 ml 1600 ml 2150 ml 4900 ml # Voids 2 2 # Bowel Movements 0 1 0 1 Exam Gen: Alert and oriented x3, appears in moderate pain HEENT: Head atraumatic, normocephalic, PERRLA, EOMI, sclera anicteric, Oropharynx non-erythematous, No obvious thrush noted CV: RRR with soft systolic murmur noted Resp: clear to auscultation bilaterally with adequate respiratory effort Abd: No abdominal tenderness, non-distended, normoactive bowel tones, soft, obese : Hill absent MSK: Radial pulses normal and equivalent bilaterally, dorsalis pedis pulses difficult to appreciate bilaterally, Pain to palpation of right SI joint, Muscle spasms of Right lower back and right gluteus region. DTRs 2+ Right knee and 1+ left knee, left knee surgical scar from previous medial partial knee replacement, Extr: No cyanosis, clubbing; mild pitting edema in bilateral lower extremities Skin: No rashes noted Neuro: No focal weakness, speaks full sentences; sensation diminished below the knee in both lower extremities Psych; Appropriate mood and affect, cooperative IVs and Medications Medications Reviewed: Medications were reviewed in detail Lab and Diagnostics Result Diagram: 06/07/1653406/07/16534 X-Rays, CTs and MRIs PROCEDURE: MRI LUMBAR SPINE WITHOUT CONTRAST IMPRESSION: 1. A disc herniation is not present. 2. The degenerative disc disease along the lumbosacral spine is relatively mild but facet osteoarthritis is quite pronounced and results in both spinal and foraminal stenosis as discussed in detail by level in the body of the report above. Multilevel foraminal stenosis is present to the degree that there is risk for multilevel nerve root impingement. A discrete source of current asymmetric no right lower extremity weakness is not seen, however. 3. Postoperative distortion is present dorsal to the L34 and L4-5 levels of the lumbosacral spine. L4 laminectomy bilaterally appears to have been performed. Dictated by: Guy Hunt M.D. on 06/05/2016 at 14:04 PROCEDURE: X-RAY CHEST, TWO VIEWS IMPRESSION: No acute process. Dictated by: Juan M Cabrera M.D. on 06/05/2016 at 19:46 CT abdomen and pelvis: IMPRESSION: 1. Appendix is upper normal in caliber, without secondary findings to suggest acute appendicitis. 2. Descending and sigmoid colon diverticulosis, without acute diverticulitis. No significant discrepancy with preliminary Nightshift report. Dictated by: Hector Mejia M.D. on 06/06/2016 at 7:03 . Assessment & Plan Patient is a 70 year old male with a history of CAD s/p stenting, BPH, and peripheral neuropathy. He presented to [facility] on 06/05/16 with severe low back pain. As he was about to be discharged from the ED the patient was noted to have a fever of 39.2. Infection work up initiated and levaquin given. Patient admitted for management of his pain and further evaluation of his possible infection. 1. Sepsis Likely Secondary to Pseudomonas UTI acute, present on admission. - Criteria met: Fever (39.2) and leukocytosis (15.2). Possible urinary tract source. - CT abd/pelvis indicated mildly enlarged appendix. No exam findings to currently support diagnosis of appendicitis. Patient w/o abdominal pain currently - Blood cultures no growth x 24 hours - urine cultures growing preliminary GNR, probably Pseudomonas. - Procalcitonin 2.18 on admit, now trending downwards - Saline locked - Levaquin IV started on 06/05 in ED, switched to PO on 06/07. Will continue until LISA returns. - Currently unsure why patient would develop Pseudomonas UTI with Candidal Thrush. He did have nasal septal surgery 2 weeks ago, and may have been on oral Steroids. He has been tested for HIV over 10 years ago and was negative. 2. Acute low back pain, present on admission. - MRI shows multilevel foraminal stenosis making the risk of nerve impingement high. - Pain was inadequately managed with Dilaudid ASPHALT MIXER. - Has been working with PT and pain does decrease with ambulation. - Will d/c the ASPHALT MIXER and switch to Maxwell 5/325 1-2 tabs PO Q4h and also add on Flexeril TID prn spasms and pain. Encourage patient to ambulate more. 3. Candidal oral thrush, acute, present on admission. - Patient complaining of dry mouth and burning with drinking fluids on admission - Tongue scrapings return Kayla growth - Nystatin Swish and Spit daily ordered. 4. CAD s/p LAD stenting, chronic, presume stable. - Continue home meds: ASA 81 mg daily, atorvastatin 80 mg HS, metoprolol succinate 25 mg daily. - Continued Plavix also. 5. Benign prostatic hyperplasia, chronic, presume stable. - Continue tamsulosin 0.4 mg BID. 6. Peripheral neuropathy, chronic, presume stable. - Not related to diabetes. History of L4 laminectomy - Not on any medication as he did not tolerate gabapentin or Lyrica. - Antiemetic available PRN. - Bowel regimen available PRN. - Antacid available PRN. - Tylenol available PRN mild pain, fever. Dispo: Patient admitted under inpatient status with expected length of stay greater than 2 midnights for severity of present symptoms, complexities of treatment plan and risk for adverse events. Likely discharge tomorrow if continues to improve and pain is tolerable. PCP Hossein Darden MD Consumer Affairs Director Vladimir Abbott MD Pain Evaluation: Pain not Controlled GI Prophylaxis: Proton Pump Inhibitor VTE Prophylaxis: Sub-Q Enoxaparin VTE Mechanical Devices: Intermittant Pneumatic CD Resuscitation Status: CPR: Attempt Resuscitation Time spent 25 minutes Attending Statement I have seen and evaluated patient at bedside in addition to directly supervising care provided by resident physician. I agree with above documentation. Nader Tolentino DO Jun 07, 2016 07:53 Waqar Bowles DO Jun 08, 2016 07:46
--- NOTE | 2016-06-07 12:41 | NUR ---
Social Work-initial assessment: Data:See initial assessment. pt is a 70 y/o male who was admitted on 06/05/16 for sepsis per H&P. Pt's insurance is [employer] and PCP is Hossein Darden MD.EMR Reviewed. Pt's readmission score is 2. SW met with pt at bedside to discuss discharge planning, SW role explained. Pt is alert and oriented x3. Pt resides at home with his where he remains independent with ADls. Pt uses a fww or cane at baseline and does drive. Pt has no HH or SNF history. Pt has done outpt PT before. Pt has no snf care or VA benefits. SW discussed DPOA/ advanced directive, pt confirms he has completed this, SW encouraged a copy to be brought into the hospital. PT has cleared pt for home with outpt PT services, pt agreeable. Pt confirms that his will provide transport at discharge. SW provided phone number and plan on white board in room. No anticipated discharge needs. SW will continue to follow if needs arise. Assessment:Pt who is independent at baseline. Plan:Pt to discharge home when medically stable via POV. No anticipated discharge needs. SW will continue to follow if needs arise. JARVIS Driver Addendum: 06/07/16 at 1245 by FELICITA RICK Amended: Links added.
[2016-06-07] MEDS: Nystatin 100,000 Unit/mL 5 mL Suspension PO SCH (12:53)
[2016-06-07] MEDS: HYDROcodone-APAP 5-325 mg Tablet PO PRN ×2 (17:08→20:57)
--- NOTE | 2016-06-07 17:49 | NUR ---
Pain/Infection Continues to have lower back pain. Dilaudid HEARINGS REPORTER dc'd. Encouraged patient to take Walls as prescribed for back pain 07/12. Patient then stated "I don't take medications". This RN continued to encourage yet slightly resistive. Towards end of shift had c/o pain 11/11. PRN Walls and flexeril given. Patient now resting in bed with eyes closed. Afebrile entire shift. Denies SOB. See VSS.
[2016-06-07] MEDS ORDERED: levoFLOXacin 500 mg Tablet PO SCH (20:00)
[2016-06-08] MEDS: HYDROcodone-APAP 5-325 mg Tablet PO PRN ×3 (01:15→12:03)
[2016-06-08] MEDS: Sodium Chloride NAS 45 mL Spray NASAL PRN (01:15)
--- NOTE | 2016-06-08 05:30 | NUR ---
Pain Pt c/o lower back pain 6-10, radiated to right hip, increase with activities, [place] 1 tab q4h prn givenx2, Flexeril 5mg x1, ice bag tried,helps "a little bit", pt refuses k-pad when offered because "It does not help" with the pain. Detraction and relaxation recommended, such as reading watch TV. Position change for comfort. Pt also sitting up in chair for a couple hours. Pain gradually down to 3/10 this morning, tolerable per pt.
[2016-06-08 05:41] VITALS: BP 134/51; PULSE 57; RESP 18; O2SAT 95
[2016-06-08 06:56] LABS: BASOPHILS % (AUTO) 0.4 % (0-3); EOSINOPHILS % (AUTO) 2.8 % (0-5); MONOCYTES % (AUTO) 7.3 % (4-12); Mean Corpuscular Hemoglobin 29.4 pg (27.0-35.0); Mean Corpuscular Volume 86.7 fL (81-100); NEUTROPHILS % (AUTO) 75.2 % (40-74); Platelet Count 170 bil/L (150-400)
[2016-06-08] MEDS: Pantoprazole 40 mg ER24 Tablet PO SCH (07:39)
[2016-06-08] MEDS: Nystatin 100,000 Unit/mL 5 mL Suspension PO SCH (07:39)
[2016-06-08] MEDS: Polyethylene Glycol (PEG) 17 Gm Powder PO PRN (07:39)
[2016-06-08] MEDS: MeTOProlol XL 25 mg ER24 Tablet PO SCH (07:40)
[2016-06-08 14:44] VITALS: BP 107/55; PULSE 49; RESP 20; O2SAT 98
--- NOTE | 2016-06-08 15:06 | PCM.DIMED ---
Nader Tolentino DO 06/08/16 1506: Discharge Instructions Date of Service Jun 08, 2016 Dates of Hospitalization Jun 05, 2016 at 23:02 Discharge Diagnosis Discharge Diagnosis 1. Sepsis Likely Secondary to Pseudomonas UTI acute, present on admission. 2. Acute on Chronic low back pain, present on admission. 3. Candidal oral thrush, acute, present on admission. 4. CAD s/p LAD stenting, chronic, POA 5. Benign prostatic hyperplasia, chronic 6. Peripheral neuropathy, chronic Medication Instructions Please take the antibiotic as instructed. Please take the Hydrocodone and Flexeril as instructed. They both can make you drowsy, so please do not take with alcohol or drive while taking it. Diet Heart Healthy Activity No restrictions Call your provider Fever or Chills, Shortness of breath, Chest pain, Excessive diarrhea, Weakness ( unilateral) Patient Instructions Please follow up with your PCP within 1 week. Please finish your antibiotics and drink at least 2 liters of water daily. Continue icing your back and hip and stretching frequently. Follow-up Provider: Hossein Darden MD Follow-up with PCP in: 1 week Waqar Bowles DO 06/09/16 0754: Discharge Instructions Attending's Statement Read and agree Nader Tolentino DO Jun 08, 2016 15:06 Waqar Bowles DO Jun 09, 2016 07:54
[2016-06-08] MEDS ORDERED: NYST1000 PO (15:09)
[2016-06-08] MEDS ORDERED: LEVO500T16 PO (15:09)
[2016-06-08] MEDS ORDERED: CYCL10TA9 PO (15:09)
[2016-06-08] MEDS ORDERED: HYDR-4003 PO (15:09)
--- NOTE | 2016-06-08 15:23 | NUR ---
Social Work-discharge: Data:EMR Reviewed. Pt is on day 3 of hospitalization for sepsis per H&P. Pt is medically stable to discharge home today. PT has cleared pt for home with outpt PT. SW confirmed plan and pt's to provide transport home today. No discharge needs identified. All updated and agreeable to plan. Assessment:Pt who is independent at baseline. Plan:Pt to discharge home today via POV. No discharge needs identified. All updated and agreeable to plan. JARVIS Driver
--- NOTE | 2016-06-08 17:32 | NUR ---
DISCHARGE Pt discharged home this afternoon at 1615, accompanied off unit in w/c by RESOURCE TECHNICIAN and . Vital signs stable, states pain is at a tolerable level at this moment, no apparent distress. IV dc'd intact, all belongings returned. All instructions for diet, activity, medications, prescriptions and follow up reviewed with patient who reports understanding.
--- NOTE | 2016-06-08 21:16 | PCM.DC.MED ---
Discharge Summary Date of Service Jun 08, 2016 Dates of Hospitalization Date of Hospital Admission Jun 05, 2016 at 23:02 Date of Discharge: Jun 08, 2016 Providers: Admitting Physician: Katharina Jolley DO Primary Care Physician: Hossein Darden MD Attending Physician: Katharina Jolley DO Diagnosis at Time of Discharge Diagnosis at Time of Discharge 1. Sepsis Likely Secondary to Pseudomonas UTI, acute, present on admission. 2. Acute on Chronic low back pain, present on admission. 3. Candidal oral thrush, acute, present on admission. 4. CAD s/p LAD stenting, chronic, POA 5. Benign prostatic hyperplasia, chronic 6. Peripheral neuropathy, chronic Procedures XRay, CTs & MRIs PROCEDURE: MRI LUMBAR SPINE WITHOUT CONTRAST IMPRESSION: 1. A disc herniation is not present. 2. The degenerative disc disease along the lumbosacral spine is relatively mild but facet osteoarthritis is quite pronounced and results in both spinal and foraminal stenosis as discussed in detail by level in the body of the report above. Multilevel foraminal stenosis is present to the degree that there is risk for multilevel nerve root impingement. A discrete source of current asymmetric no right lower extremity weakness is not seen, however. 3. Postoperative distortion is present dorsal to the L34 and L4-5 levels of the lumbosacral spine. L4 laminectomy bilaterally appears to have been performed. Dictated by: Guy Hunt M.D. on 06/05/2016 at 14:04 PROCEDURE: X-RAY CHEST, TWO VIEWS IMPRESSION: No acute process. Dictated by: Juan M Cabrera M.D. on 06/05/2016 at 19:46 CT abdomen and pelvis: IMPRESSION: 1. Appendix is upper normal in caliber, without secondary findings to suggest acute appendicitis. 2. Descending and sigmoid colon diverticulosis, without acute diverticulitis. No significant discrepancy with preliminary Nightshift report. Dictated by: Hector Mejia M.D. on 06/06/2016 at 7:03 . Brief History Patient is a 70 year old male with a history of CAD s/p stenting, BPH, and peripheral neuropathy. He presented to [facility] on 06/05/16 with severe low back pain. The back pain began May 22 and awakened him in the middle of the night. He had difficulty finding a comfortable position in bed at that time. When attempting to get out of bed he had pain going down his right leg making it difficult to ambulate. He tried to go to work the next day and was sent home as he was looking so miserable. He called his PCP and was given dilaudid PO 2 mg to be taken Q6. Lumbar spin MRI was ordered but due to insurance issues could not be performed at this stage. This helped at first but then the pain worsened and he was instructed to take the dilaudid Q4. MRI was then approved but could not be done until 06/11/15. The pain continued to worsen and the dosing was increased again to 4 mg Q4. The morning of June 05 the patient was feeling poorly. Upon waking he was experiencing generalized shaking and spent an hour in the shower warming up. Later in the day he reports experiencing a fever. By the afternoon his pain was so poorly controlled he decided to seek treatment in the ED. Over the past few days he denies cough, sputum production, or other cold/flu like symptoms. He has had no chest pain, palpitations, shortness of breath, dizziness/lightheadedness, or syncopal episodes. This morning he experienced nausea but no vomiting and the nausea has since resolved completely. He denies diarrhea and was constipated the last couple of weeks. He has experienced no dysuria or hematuria. Due to his BPH he often has difficulty initiating urination. In the ED the patient was initially afebrile with a heart rate of 80, respiratory rate of 20, blood pressure 114/56, and O2 saturation 93% on room air. On re-check patient became febrile at 39.2. Labs remarkable for WBC 15.2. Concern for possible UTI with urine WBC 11-50. Levaquin initiated in ED. Patient to be admitted for pain control and additional infection work-up. Hospital Course Patient is a 70 year old male with a history of CAD s/p stenting, BPH, and peripheral neuropathy. He presented to [facility] on 06/05/16 with severe low back pain. As he was about to be discharged from the ED the patient was noted to have a fever of 39.2. Infection work up initiated and levaquin given. Patient admitted for management of his pain and further evaluation of his possible infection. During hospital stay, patient was found to have a arias sensitive Pseudomonas UTI and was treated with Levaquin. He also complained of mouth burning and was found to have candidal thrush and was subsequently treated with Nystatin. His back pain was inadequately managed with a Dilaudid [employer], but was manageable with PO Goessel and Flexeril for severe muscle spasms. He was able to participate in PT for condition and strengthening. Once his pain and infection were improving, he was discharged in good condition with follow up. 1. Sepsis Likely Secondary to Pseudomonas UTI acute, present on admission. improving - Criteria met: Fever (39.2) and leukocytosis (15.2). with urinary tract as source. - CT abd/pelvis indicated mildly enlarged appendix. No exam findings to currently support diagnosis of appendicitis. Patient w/o abdominal pain during admission - Blood cultures no growth x 48 hours - urine cultures grew arias sensitive Pseudomonas. Patient had lower back pain, but not CVA tenderness specifically, so likely not Pyelonephritis - Procalcitonin 2.18 on admi and trended down with abx - Levaquin IV started on 06/05 in ED, switched to PO on 06/07. Will continue to complete 7 day course. - Currently unsure why patient would develop Pseudomonas UTI with Candidal Thrush. He did have nasal septal surgery 2 weeks ago, and may have been on oral Steroids and hill catheter. He has been tested for HIV over 10 years ago and was negative. 2. Acute low back pain, present on admission. improved - MRI shows multilevel foraminal stenosis making the risk of nerve impingement high. Patient also may be suffering from some IT band tightness and piriformis syndrome. - Pain was inadequately managed with Dilaudid [employer] initially - Has been working with PT and pain does decrease with ambulation. - [employer]OR was d/c and switched to Goessel 5/325 1-2 tabs PO Q4h and also add on Flexeril TID prn spasms and pain, this eventually did help patient relax more and he was able to sleep laying down and participate in PT. 3. Candidal oral thrush, acute, present on admission. improving - Patient complaining of dry mouth and burning with drinking fluids on admission - Tongue scrapings return Kayla growth - Nystatin Swish and Spit daily ordered. To be continued as outpatient for a few more days until improved. 4. CAD s/p LAD stenting, chronic, presume stable. - Continue home meds: ASA 81 mg daily, atorvastatin 80 mg HS, metoprolol succinate 25 mg daily. - Continued Plavix 5. Benign prostatic hyperplasia, chronic, presume stable. - Continue tamsulosin 0.4 mg BID. 6. Peripheral neuropathy, chronic, presume stable. - Not related to diabetes. History of L4 laminectomy - Not on any medication as he did not tolerate gabapentin or Lyrica. PCP Hossein Darden MD General Manager Food Vladimir Abbott MD Exam Vital Signs (Last) Date Time Temp Pulse Resp B/P Pulse Ox O2 Delivery O2 Flow Rate FiO2 06/08/16 14:44 36.7 49 20 107/55 98 Room Air 06/06/16 04:50 2.00 Exam Gen: Alert and oriented x3, appears in moderate pain HEENT: Head atraumatic, normocephalic, PERRLA, EOMI, sclera anicteric, Oropharynx non-erythematous, No obvious thrush noted CV: RRR with soft systolic murmur noted Resp: clear to auscultation bilaterally with adequate respiratory effort Abd: No abdominal tenderness, non-distended, normoactive bowel tones, soft, obese : Hill absent MSK: Radial pulses normal and equivalent bilaterally, dorsalis pedis pulses difficult to appreciate bilaterally, Pain to palpation of right SI joint and right IT band, Muscle spasms of Right lower back and right gluteus region. DTRs 2+ Right knee and 1+ left knee, left knee surgical scar from previous medial partial knee replacement, Extr: No cyanosis, clubbing; mild pitting edema in bilateral lower extremities Skin: No rashes noted Neuro: No focal weakness, speaks full sentences; sensation diminished below the knee in both lower extremities Psych; Appropriate mood and affect, cooperative Test 06/05/16 18:26 06/05/16 21:00 06/07/16 05:35 06/08/16 06:05 Lactic Acid Level 1.4mmol/L (0.4-2.0) Total Bilirubin 1.0mg/dL (0.0-1.2) Aspartate Amino Transf (AST/SGOT) 26U/L (0-50) Alanine Aminotransferase (ALT/SGPT) 24U/L (0-44) Alkaline Phosphatase 78U/L (25-160) Total Protein 6.2g/dL (6.4-8.4) Albumin 3.5g/dL (3.4-5.0) Urine Color Yellow (YELLOW) Urine Appearance Hazy (CLEAR,HAZY) Urine pH 6.0 (5.0-8.0) Urine Specific [place] 1.020 (1.003-1.035) Urine Protein Tracemg/dL (NEG,TRACE) Urine Glucose (UA) Negativemg/dL (NEGATIVE) Urine Ketones Negativemg/dL (NEGATIVE) Urine Occult Blood Small (NEGATIVE) Urine Nitrite Negative (NEGATIVE) Urine Bilirubin Negative (NEGATIVE) Urine Urobilinogen Normalmg/dL (NORMAL) Urine Leukocyte Esterase Small (NEGATIVE) Urine RBC 3-10/hpf (0-2) Urine WBC 11-50/hpf (0-5) Urine Epithelial Cells Occasional/hpf (NONE-MOD) Urine Crystals None seen (NONE SEEN) Urine Bacteria Few/hpf (NONE-FEW) Urine Hyaline Casts Rare/lpf (NONE) Urine Granular Casts None seen (NONE SEEN) Urine Waxy Casts None seen (NONE SEEN) Urine Red Blood Cell Casts None seen (NONE SEEN) Urine White Blood Cell Casts None seen (NONE SEEN) Urine Mucus Present (None Seen) Urine Trichomonas None seen (NONE SEEN) Urine Yeast None (NONE SEEN) Urinalysis Comment None Urine Culture Reflexed Indicated Phosphorus Level 2.5mg/dL (2.5-4.9) Magnesium Level 1.9mg/dL (1.6-2.6) White Blood Count 8.3th/mm3 (3.8-10.1) Red Blood Count 4.15mil/mm3 (4.40-5.80) Hemoglobin 12.2g/dL (13.8-17.2) Hematocrit 36.0% (41.0-50.0) Mean Corpuscular Volume 86.7fL (81-100) Mean Corpuscular Hemoglobin 29.4pg (27.0-35.0) Mean Corpuscular Hemoglobin Concent 33.9% (32.0-37.0) Red Cell Distribution Width 13.2% (12.3-15.4) Platelet Count 170bil/L (150-400) Neutrophils (%) (Auto) 75.2% (40-74) Lymphocytes (%) (Auto) 13.9% (14-46) Monocytes (%) (Auto) 7.3% (4-12) Eosinophils (%) (Auto) 2.8% (0-5) Basophils (%) (Auto) 0.4% (0-3) Sodium Level 142mEq/L (134-144) Potassium Level 4.1mEq/L (3.5-5.2) Chloride Level 103mEq/L (97-108) Carbon Dioxide Level 25mmol/L (18-29) Blood Urea Nitrogen 14mg/dL (8-27) Creatinine 0.68mg/dL (0.76-1.27) Estimat Glomerular Filtration Rate 122mL/min (>59) Glucose Level 108mg/dL (60-99) Calcium Level 9.1mg/dL (8.5-10.1) Procalcitonin 0.93ng/mL (0.00-0.08) Discharge Medications Discharge Medications Aspirin (Aspirin) 81 Mg Tablet 81 MG PO DAILY (Reported) Atorvastatin Calcium (Atorvastatin Calcium) 80 Mg Tablet 80 MG PO HS (Reported) Cholecalciferol (Vitamin D3) (Vitamin D3) 5,000 Unit Capsule 5,000 UNIT PO DAILY (Reported) Clopidogrel Bisulfate (Plavix) 75 Mg Tablet 75 MG PO DAILY (Reported) Garlic (Garlic) 1,000 Mg Capsule 2 CAPSULE PO DAILY (Reported) Levofloxacin (Levaquin) 500 Mg Tablet 500 MG PO DAILY@20 Prescribed by: CHECO GAN DO Metoprolol Succinate ER (Metoprolol Succinate ER) 25 Mg Tab.er.24h 25 MG PO DAILY (Reported) Nystatin (Nystatin) 100,000 Unit/1 Ml Oral.susp 500,000 UNIT PO TID Prescribed by: CHECO GAN DO [place]-3/Dha/Epa/Fish Oil (Fish Oil 1,000 mg Softgel) 1 Each Capsule 1 EACH PO DAILY (Reported) Pantoprazole DR (Pantoprazole DR) 40 Mg Tablet.dr 40 MG PO BIDAC Prescribed by: PATRIA GIBSON DO Tamsulosin (Flomax) 0.4 Mg Capsule 0.4 MG PO BID (Reported) As needed Cyclobenzaprine (Cyclobenzaprine) 10 Mg Tablet 5-10 MG PO TID PRN PRN For Spasm Prescribed by: CHECO GAN DO Hydrocodone-Acetaminophen 5-325 mg (Hydrocodone-Acetaminophen 5-325 mg) 1 Each Tablet 1 TABLET PO Q6H PRN PRN For Mild Pain Prescribed by: CHECO GAN DO Hydromorphone (Hydromorphone) 2 Mg Tablet 2 TABLET PO Q4H PRN PRN Pain (Reported ) Loratadine (Claritin) 10 Mg Capsule 10 MG PO DAILY PRN PRN allergies (Reported) Additional med instructions Please take the antibiotic as instructed. Please take the Hydrocodone and Flexeril as instructed. They both can make you drowsy, so please do not take with alcohol or drive while taking it. Followup Plan Disposition: Home Discharge Diet: Heart Healthy Discharge Activity: No restrictions Patient Instructions Please follow up with your PCP within 1 week. Please finish your antibiotics and drink at least 2 liters of water daily. Continue icing your back and hip and stretching frequently. Follow-up Provider: Hossein Darden MD Follow-up with PCP in: 1 week Time spent 40 minutes Attending Statement I have seen and evaluated patient at bedside in addition to directly supervising care provided by resident physician. I agree with above documentation. copies to: Hossein Darden MD, Hong D DO Jun 08, 2016 21:16 Waqar Bowles DO Jun 09, 2016 08:28
== END 2016-06-08 16:15 | disposition home or self-care (01) | DRG 872 ==
LOC: SED 12:19 → MPC 23:02
PROVIDERS: ADMIT Internal Medicine; ATTEND Internal Medicine
DX: A41.9 Sepsis, unspecified organism (principal); B37.0 Candidal stomatitis; N39.0 Urinary tract infection, site not specified; M54.5 Low back pain; Z79.82 Long term (current) use of aspirin; Z95.5 Presence of coronary angioplasty implant and graft; M48.06 Spinal stenosis, lumbar region; I25.10 Atherosclerotic heart disease of native coronary artery without angina pectoris; N40.0 Benign prostatic hyperplasia without lower urinary tract symptoms; G62.9 Polyneuropathy, unspecified; B96.5 Pseudomonas (aeruginosa) (mallei) (pseudomallei) as the cause of diseases classified elsewhere

== ENCOUNTER 2016-09-07 02:10 | Observation (INO) | payer OTHER, MEDICARE ==
[~2016-09-07] VITALS: Ht 188 cm; Wt 119.4 kg
[2016-09-07] VITALS (11 sets, daily range): BP systolic 91–146; BP diastolic 34–63; PULSE 61–105; RESP 16–22; O2SAT 95–99
[~2016-09-07 02:10] MED LIST changes: +CLOP75TA3 PO; +CYCL10TA9 PO; +HYDR-4003 PO; +HYDR2TAB28 PO; -LACT1CAP73 PO; +LEVO500T16 PO; -MULT1CAP27 PO; +NYST1000 PO; -SAW/1TAB2 PO
[2016-09-07] MEDS ORDERED: 0.9% Sodium Chloride 1,000 ML IV ONE (02:21)
--- NOTE | 2016-09-07 02:21 | ED.REPORT ---
HPI-Back Pain 40 and Over Date of Service Sep 07, 2016 ED Provider: Salvatore Santiago MD The patient is a 70 year old male with a medical history including CAD, spinal stenosis, and peripheral neuropathy who presents to the ED via EMS with lower back pain onset suddenly at 2000 last night. The pain is rated 10/10 with radiation to his groin and down his legs bilaterally. He is found to have a fever of 39.4 in the ED. The patient denies dysuria, numbness, weakness, urinary incontinence, bowel incontinence, injury/trauma to the area, or other symptoms. He took two muscle relaxers since onset with no relief. EMS found the patient with a BP of 160/60, a pulse of 98, a respiration rate of 20, and a pulse ox of 95%. He was given 100mcg Fentanyl en route. The patient has had similar symptoms in the past. Nursing Notes Stated Complaint: BACK PAIN Chief Complaint: Back Pain or Injury Nursing Notes Reviewed: Yes Allergies: Coded Allergies: Contrast Media (Verified Allergy, Severe, anaphalyxis, 05/13/16) Patient uses iodine on his skin without untoward effect. meprobamate (Verified Allergy, Severe, RESPIRATORY DISTRESS, 05/13/16) Iodinated Contrast Media - Oral and (Verified Allergy, Unknown, stops breathing, 05/13/16) oxycodone HCl (Verified Allergy, Unknown, UNKNOWN, 05/13/16) codeine (Verified Adverse Reaction, Severe, BURNING SKIN, 05/13/16) gabapentin (Verified Adverse Reaction, Severe, FATIGUE,FREQUENCY, 05/13/16) pregabalin (Verified Adverse Reaction, Severe, FATIGUE,FREQUENCY, 05/13/16) Scheduled Aspirin (Aspirin) 81 Mg Tablet 81 MG PO DAILY Atorvastatin Calcium (Atorvastatin Calcium) 80 Mg Tablet 80 MG PO HS Cholecalciferol (Vitamin D3) (Vitamin D3) 5,000 Unit Capsule 5,000 UNIT PO DAILY Clopidogrel Bisulfate (Plavix) 75 Mg Tablet 75 MG PO DAILY Garlic (Garlic) 1,000 Mg Capsule 2 CAPSULE PO DAILY Levofloxacin (Levaquin) 500 Mg Tablet 500 MG PO DAILY@20 Metoprolol Succinate ER (Metoprolol Succinate ER) 25 Mg Tab.er.24h 25 MG PO DAILY Nystatin (Nystatin) 100,000 Unit/1 Ml Oral.susp 500,000 UNIT PO TID [place]-3/Dha/Epa/Fish Oil (Fish Oil 1,000 mg Softgel) 1 Each Capsule 1 EACH PO DAILY Pantoprazole DR (Pantoprazole DR) 40 Mg Tablet.dr 40 MG PO BIDAC Tamsulosin (Flomax) 0.4 Mg Capsule 0.4 MG PO BID Scheduled PRN Cyclobenzaprine (Cyclobenzaprine) 10 Mg Tablet 5-10 MG PO TID PRN PRN For Spasm Hydrocodone-Acetaminophen 5-325 mg (Hydrocodone-Acetaminophen 5-325 mg) 1 Each Tablet 1 TABLET PO Q6H PRN PRN For Mild Pain Hydromorphone (Hydromorphone) 2 Mg Tablet 2 TABLET PO Q4H PRN PRN Pain Loratadine (Claritin) 10 Mg Capsule 10 MG PO DAILY PRN PRN allergies General Time Seen by MD: 02:14 Chief Complaint Lumbar pain Hx Obtained From: Patient, EMS Arrived By: Ambulance Sudden in Onset?: Yes Onset Occurred: 5 - 8 hours ago Symptom Duration: Since onset Caused by: Spontaneous/no mechanism Location: : Spinal lumbar area Quality: Painful Radiation: : Inguinal: Left leg above knee: Right leg above knee Severity: Current: Severe Severity: Maximum: Pain level 10 out of 10 Pertinent Negative: Relieved by nothing Related History: Reports: Chronic back pain, Kidney stone, Spinal surgery Recent Healthcare: No recent doctor visit Similar Sx Previous: Yes Past Medical History Past Medical History CAD s/p LAD stenting Hyperlipidemia History of bradycardia BPH History of nephrolithiasis Peripheral neuropathy GERD Sleep apnea on CPAP Spinal stenosis GI bleed Reports: Coronary artery disease, Hyperlipidemia Reports: Depression Past Surgical History Left heart cath March 2015 Cardiac stent placement Bilateral shoulder repair Carpal tunnel release Neck surgery Sinus surgery L4 laminectomy Left total knee replacement Lithotripsy Family History Father had CHF Smoking History Never Smoker Social History Alcohol Use: Denies alcohol use Drug Use: Denies drug use Other Social History: Good social support, , Local resident 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 Physical Exam Initial Vital Signs Vital Signs (First) Date Time Temp Pulse Resp B/P Pulse Ox O2 Delivery O2 Flow Rate FiO2 09/07/16 02:13 39.4 103 22 137/34 95 Room Air Initial VS: Reviewed, Vital signs abnormal Head / Eyes: Atraumatic, Normocephalic ENT: Conjunctiva normal, No scleral icterus Neck: Supple, Full range of motion Skin: Warm, Dry, No cyanosis Psychiatric: Mood/affect normal, Behavior normal, Normal thought content General/Constitutional: Awake, Alert Respiratory / Chest: Breath sounds NL, Breath sounds = bilat, No respiratory distress Cardiovascular: Regular rhythm, Heart sounds NL Heart Rate / Rhythm: Positive: Tachycardia Abdomen: Soft Tenderness/Guarding/Rebound: Positive: Tender LLQ..., Tender RLQ... Back: Atraumatic Flank / Spine / Paraspinal: Positive: SI joint tender L Neurologic: Oriented X3, Speech NL, No motor deficits, No sensory deficits Interpretation & Diagnostics Lab Results Interpretation Result Diagram: 09/07/16 0215 09/07/16 0215 Test 09/07/16 02:15 09/07/16 03:03 09/07/16 03:45 White Blood Count 10.7th/mm3 (3.8-10.1) Red Blood Count 4.68mil/mm3 (4.40-5.80) Hemoglobin 14.0g/dL (13.8-17.2) Hematocrit 41.1% (41.0-50.0) Mean Corpuscular Volume 87.8fL (81-100) Mean Corpuscular Hemoglobin 29.9pg (27.0-35.0) Mean Corpuscular Hemoglobin Concent 34.1% (32.0-37.0) Red Cell Distribution Width 13.8% (12.3-15.4) Platelet Count 144bil/L (150-400) Neutrophils (%) (Auto) 82.2% (40-74) Lymphocytes (%) (Auto) 7.9% (14-46) Monocytes (%) (Auto) 7.6% (4-12) Eosinophils (%) (Auto) 1.7% (0-5) Basophils (%) (Auto) 0.4% (0-3) Sodium Level 138mEq/L (134-144) Potassium Level 4.7mEq/L (3.5-5.2) Chloride Level 99mEq/L (97-108) Carbon Dioxide Level 21mmol/L (18-29) Blood Urea Nitrogen 16mg/dL (8-27) Creatinine 0.74mg/dL (0.76-1.27) Estimat Glomerular Filtration Rate 111mL/min (>59) Glucose Level 157mg/dL (60-99) Calcium Level 9.4mg/dL (8.5-10.1) Magnesium Level 1.6mg/dL (1.6-2.6) Total Bilirubin 0.6mg/dL (0.0-1.2) Aspartate Amino Transf (AST/SGOT) 29U/L (0-50) Alanine Aminotransferase (ALT/SGPT) 20U/L (0-44) Alkaline Phosphatase 104U/L (25-160) Troponin T 0.010ug/L (0.0-0.011) Total Protein 7.0g/dL (6.4-8.4) Albumin 4.2g/dL (3.4-5.0) Lactic Acid Level 2.0mmol/L (0.4-2.0) Urine Color Yellow (YELLOW) Urine Appearance Clear (CLEAR,HAZY) Urine pH 7.5 (5.0-8.0) Urine Specific [place] 1.015 (1.003-1.035) Urine Protein Negativemg/dL (NEG,TRACE) Urine Glucose (UA) Negativemg/dL (NEGATIVE) Urine Ketones Negativemg/dL (NEGATIVE) Urine Occult Blood Negative (NEGATIVE) Urine Nitrite Negative (NEGATIVE) Urine Bilirubin Negative (NEGATIVE) Urine Urobilinogen Normalmg/dL (NORMAL) Urine Leukocyte Esterase Trace (NEGATIVE) Urine RBC 0-2/hpf (0-2) Urine WBC 11-50/hpf (0-5) Urine Epithelial Cells Few/hpf (NONE-MOD) Urine Crystals None seen (NONE SEEN) Urine Bacteria Few/hpf (NONE-FEW) Urine Hyaline Casts None/lpf (NONE) Urine Granular Casts None seen (NONE SEEN) Urine Waxy Casts None seen (NONE SEEN) Urine Red Blood Cell Casts None seen (NONE SEEN) Urine White Blood Cell Casts None seen (NONE SEEN) Urine Mucus None seen (None Seen) Urine Trichomonas None seen (NONE SEEN) Urine Yeast None (NONE SEEN) Urinalysis Comment None Urine Culture Reflexed Indicated Lab Results Interpretation: Elevated white blood count, too numerous to count white blood cells per high-power field. ECG Interpretation ECG Interpretation: Sinus rhythm rate 97 Time: 02:29 Interpreted by: ED physician X-Ray Chest Interpretation Chest Xray Interpretation: No acute infiltrate View: Portable, 1 view Interpretation / Wet Read by: Wet read ED physician Re-Eval/Medical Decision Med Decision/Clinical Course 70-year-old with back pain that he initially insisted was his usual musculoskeletal back pain. However, I think the pain is from a kidney infection. He had fever, elevated white count, and tachycardia and too numerous to count white cells in his urine. He was given cultures and Rocephin. He will be admitted for further evaluation and treatment. Source of Hx: Old records Re-Evaluation/Progress #1: Time of Eval: 03:18 Re-Evaluation/Progress Note: Patient is still in pain. Additional physical exam performed. Re-Evaluation/Progress #2: Time of Eval: 06:12 Patient Status: Condition improved Re-Evaluation/Progress Note: Discussed with patient lab and x-ray results, diagnosis, and plan for admit. Patient agrees with plan for care and all questions were addressed. Consultation : Referral / Consult Name: Ronnie Gutiérrez MD Consulted With: Hospitalist Call Returned at: 06:05 Checkerer Hand: Agrees with eval, Agrees with plan, Accepts admit Counseled Regarding: Diagnosis, Lab results, Need for admission Discharge & Departure Impression: Primary Impression: Urinary tract infection Urinary tract infection type: acute cystitis Hematuria presence: without hematuria Qualified Code: N30.00 - Acute cystitis without hematuria Additional Impression: Sepsis Sepsis type: sepsis due to unspecified organism Qualified Code: A41.9 - Sepsis, unspecified organism Disposition: ADMITTED TO HOSPITAL Discharge Condition All VS Reviewed: Yes Condition: Improved Referrals: Hossein Darden MD (PCP) Roselyn Attestation Portions of this note were transcribed by Mattie Lemos. I, Dr. Santiago, personally performed the history, physical exam, and medical decision-making; I reviewed and confirmed the accuracy of the information in the transcribed note. Signed by: Roselyn Schaeffer, 09/07/2016, 06:30 copies to: Hossein Darden MD, Howard L MD Sep 07, 2016 02:21 MATTIE LEMOS Sep 07, 2016 04:25
[2016-09-07] MEDS ORDERED: cefTRIAXone Inj 2,000 MG in Dextrose 5% Minibag Plus 50 ML IV ONE (02:25)
[2016-09-07 02:36] LABS: BASOPHILS % (AUTO) 0.4 % (0-3); EOSINOPHILS % (AUTO) 1.7 % (0-5); MONOCYTES % (AUTO) 7.6 % (4-12); Mean Corpuscular Hemoglobin 29.9 pg (27.0-35.0); Mean Corpuscular Volume 87.8 fL (81-100); NEUTROPHILS % (AUTO) 82.2 % (40-74); Platelet Count 144 bil/L (150-400)
[2016-09-07] MEDS ORDERED: fentaNYL-PF 50 mCg/mL 2 mL Inj IVPUSH ONE ×2 (03:05→06:35)
[2016-09-07 03:12] LABS: TROPONIN T 0.01 ug/L (0.0-0.011)
[2016-09-07 03:14] LABS: Magnesium 1.6 mg/dL (1.6-2.6)
[2016-09-07 04:01] LABS: APPEARANCE,URINE CLEAR (CLEAR,HAZY); COLOR,URINE YELLOW (YELLOW); OCCULT BLOOD,URINE NEGATIVE (NEGATIVE); PH,URINE 7.5 (5.0-8.0); UROBILINOGEN,URINE NORMAL (NORMAL)
[2016-09-07] MEDS ORDERED: Alum-Mag Hydrox-Simeth 30 mL Suspension PO PRN (06:05)
[2016-09-07] MEDS ORDERED: Ondansetron 2 mg/mL 2 mL Inj IVPUSH PRN (06:05)
[2016-09-07] MEDS ORDERED: Polyethylene Glycol (PEG) 17 Gm Powder PO PRN (08:00)
--- NOTE | 2016-09-07 08:00 | NUR ---
Admit Pt admitted [place] [facility] via ED. Pt arrived during report, and was tucked in by off going staff. Pt alert and oriented with some confusion r/t narcotics received in EMS and ED. Pt reported pain at 2/10 on pain scale in back shooting down both legs. Pt cooperative with care, was given Aqua-pad with good relief, pt hasn't c/o of pain most of the day. Was given APAP for a 4/10 headache with good relief. Pt comfortable with good appetite, 100% of meals thus far. Pt has call light within reach, bed low and locked, intentional rounding.
--- NOTE | 2016-09-07 08:03 | PCM.HPMED ---
Subjective Date of Service Sep 07, 2016 Primary Provider: Admitting Physician: Ronnie Gutiérrez MD Primary Care Physician: Hossein Darden MD Attending Physician: Ronnie Gutiérrez MD Chief Complaint: Back pain History of Present Illness: 70-year-old male who still works with chronic history of back pain. He had probably laminectomy in 2005 has chronic back pain for which she was hospitalized here in June. MRI did not show severe stenosis or spinal impingement at that point in time. He felt his back was hurting him yesterday evening, he took some pain meds and tried to go to bed and woke up in the middle of the night in agony and came into the emergency room. In the emergency room he received Dilaudid and Valium and that helped his pain however much to my surprise him and at this point time he is sitting up awake and telling me he is in pain. Patient denies any urinary symptoms. No fevers or chills. This legs are a little bit weak he has chronic neuropathy and the pain starts in his mid low back and radiates worse to the right than to the left down the outside of his right leg, around to the groin seems like a couple different levels as described. Patient has been battling this pain for some time he status post laminectomy/ fusion both lumbar spine 2004 and C-spine in 2010. He is being referred to [facility] for further evaluation they called him last week to let them know that they were going to call him and schedule him with an appointment. He is a little bit frustrated because he cannot come soon enough. Review of Systems: Gen.: No fevers chills weight loss weight gain Eyes: no visual disturbances or blurring vision HEENT: No nose/throat drainage, no pain in ears or throat, no hearing loss Lymph: No lymph nodes noted Cardiac: No chest pain, orthopnea, PND, palpitations , pedal edema or dyspnea on exertion Pulmonary: no cough, wheezing or bringing up of sputum GI: No anorexia nausea vomiting blood or black in the stool + chronic constipation from narcotics : no dysuria hematuria urinary frequency or decrease in urine output Musculoskeletal: Joint swelling no joint pain no new muscle aches ++back pain Neuro: No syncope, seizures no loss of consciousness ++ acute/chonic new focal weakness, numbness or tingling radiating down legs right more than left Psychiatric: New new anxiety insomnia or depression Endocrine: No new heat or cold intolerances polyuria or polydipsia Hematology: No lymphadenopathy or easy bleeding or bruising noted skin: No new rashes, stasis dermatitis Allergies Coded Allergies: Contrast Media (Verified Allergy, Severe, anaphalyxis, 05/13/16) Patient uses iodine on his skin without untoward effect. meprobamate (Verified Allergy, Severe, RESPIRATORY DISTRESS, 05/13/16) Iodinated Contrast Media - Oral and (Verified Allergy, Unknown, stops breathing, 05/13/16) oxycodone HCl (Verified Allergy, Unknown, UNKNOWN, 05/13/16) codeine (Verified Adverse Reaction, Severe, BURNING SKIN, 05/13/16) gabapentin (Verified Adverse Reaction, Severe, FATIGUE,FREQUENCY, 05/13/16) pregabalin (Verified Adverse Reaction, Severe, FATIGUE,FREQUENCY, 05/13/16) Home Medications Patient list is old, patient's normal Levaquin, he stopped clopidogrel back in April, he tells me is not allergic to gabapentin is actually taking it 3 times a day. Aspirin (Aspirin) 81 Mg Tablet 81 MG PO DAILY Atorvastatin Calcium (Atorvastatin Calcium) 80 Mg Tablet 80 MG PO HS Cholecalciferol (Vitamin D3) (Vitamin D3) 5,000 Unit Capsule 5,000 UNIT PO DAILY Clopidogrel Bisulfate (Plavix) 75 Mg Tablet 75 MG PO DAILY Garlic (Garlic) 1,000 Mg Capsule 2 CAPSULE PO DAILY Levofloxacin (Levaquin) 500 Mg Tablet 500 MG PO DAILY@20 Metoprolol Succinate ER (Metoprolol Succinate ER) 25 Mg Tab.er.24h 25 MG PO DAILY Nystatin (Nystatin) 100,000 Unit/1 Ml Oral.susp 500,000 UNIT PO TID [place]-3/Dha/Epa/Fish Oil (Fish Oil 1,000 mg Softgel) 1 Each Capsule 1 EACH PO DAILY Pantoprazole DR (Pantoprazole DR) 40 Mg Tablet.dr 40 MG PO BIDAC Tamsulosin (Flomax) 0.4 Mg Capsule 0.4 MG PO BID PMH CAD s/p LAD stenting Hyperlipidemia History of bradycardia BPH History of nephrolithiasis Peripheral neuropathy GERD, GI bleed 06/2015 Sleep apnea on CPAP Spinal stenosis Reports: Coronary artery disease, Hyperlipidemia Reports: Depression Past Surgical History Left heart cath March 2015 Cardiac stent placement Bilateral shoulder repair Carpal tunnel release Neck surgery Sinus surgery L4 laminectomy Left total knee replacement Lithotripsy Family History Father had CHF Smoking History Never Smoker Social History Alcohol Use: Denies alcohol use Drug Use: Denies drug use Other Social History: Good social support, , Local resident 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 [employer] - recent shift changes that have been stressful Ambulatory Status Walker Social History Hx Alcohol Use: No Hx Substance Use: No Hx Tobacco Use: No Smoking Status: Never Smoker Exam Vital Signs Vital Sign - Last Date Time Temp Pulse Resp B/P Pulse Ox O2 Delivery O2 Flow Rate FiO2 09/07/16 07:07 90 09/07/16 07:03 36.6 20 130/58 96 Nasal Cannula 4.00 Intake and Output 09/06/16 09/06/16 09/07/16 Cumulative From/Thru 15:00 23:00 07:00 09/07/16 02:13 - 09/07/16 02:27 Intake Total 1000 ml 1000 ml Balance 1000 ml 1000 ml Intake IV Total 1000 ml 1000 ml Exam Gen.- A+ O 3 no apparent distress. Large heavyset male who is sitting up at the bedside much to my surprise after getting IV Dilaudid 2 mg and IV diazepam 5 mg and still looks a little uncomfortable. Eyes- open conjunctiva clear, pupils equal nonicteric Mouth- oral mucosa moist, no exudate ENT- ears normal, nose normal Neck- supple/trach midline CVS- RRR no murmur or gallop Lungs CTA GI- NABS/NT soft Musc- moving 4 no obvious deformity C-spine scar consistent with procedure, but good range of motion in the L spine scar consistent with procedure, tender as are his hips bilaterally right greater than left. Neuro- cranial nerves II through XII intact to gross examination, nonfocal Skin- warm and dry, no rashes/lesions/wounds noted Psych- pleasant and appropriate, Lab and Diagnostics Labs UA negative for nitrites, 11-50 WBCs, few epithelial cells and no bacteria. 09/07 Result Diagram: [id number]/[id number] X-Rays, CTs and MRIs MRI LUMBAR SPINE WITHOUT CONTRAST : Guy Hunt M.D. on 06/05/2016 at 14:19 1. A disc herniation is not present. 2. The degenerative disc disease along the lumbosacral spine is relatively mild but facet osteoarthritis is quite pronounced and results in both spinal and foraminal stenosis as discussed in detail by level in the body of the report above. Multilevel foraminal stenosis is present to the degree that there is risk for multilevel nerve root impingement. A discrete source of current asymmetric no right lower extremity weakness is not seen, however. 3. Postoperative distortion is present dorsal to the L34 and L4-5 levels of the lumbosacral spine. L4 laminectomy bilaterally appears to have been performed. Approved by: Guy Hunt M.D. on 06/05/2016 at 14:19 Assessment & Plan 70-year-old male being admitted 09/07 due to intractable back pain. He may additionally have a UTI although there is no sepsis at this point in time. #Acute/chronic pain back with radicular symptoms -Adding routine Tylenol, Lidoderm patch, Ultram, Naprosyn (GI blled noted) PT eval -Continue gabapentin (not allergic) -Patient awaiting eval at [facility], he has a complex history locally we can mobilize and controlled his symptoms so that he can get there as I doubt there is a lot we can do for him here. #? UTI?-UA pretty benign, patient got dose Rocephin in ED 09/07, denies symptoms I am not inclined to continue treatment. CAD/HTN/lipids-continue metoprolol, aspirin, atorvastatin #GERD/Hx GI bleeding-continue PPI twice a day #Sleep apnea-home CPAP #Prophylaxis- DVT with SCDs/enoxaparin, GI on twice a day PPI #Disposition- from home, full code aNndo Allen MD Sep 07, 2016 08:03
[2016-09-07] MEDS ORDERED: GARLIC PO SCH (08:30)
--- NOTE | 2016-09-07 08:33 | DRSVH ---
PROCEDURE: X-RAY CHEST ONE VIEW, PORTABLE ([id number]) INDICATIONS: fever and back pain TECHNIQUE: One view of the chest was acquired. COMPARISON: [facility], CT, CT ABD PELVIS WO CON, 06/05/2016, 23:34. [facility], CR, XR CHEST 1VW (PORTABLE), 07/21/2015, 14:55. [facility], CR, XR CHEST 2VW, 017, 19:12. FINDINGS: Surgical changes and devices: None. Lungs and pleura: No pleural effusions or pneumothorax. Lungs are clear. Mediastinum: Mediastinal contours appear normal. Heart size is normal. Bones and chest wall: No suspicious bony lesions. Overlying soft tissues appear unremarkable. Righ t acromioplasty. IMPRESSION: No acute cardiopulmonary disease. Dictated by: Neli Booker M.D. on 09/07/2016 at 8:30 Approved by: Neli Booker M.D. on 09/07/2016 at 8:31
[2016-09-07] MEDS: Lidocaine Topical 5% Patch TOPICAL SCH (09:12)
[2016-09-07] MEDS: 0.9% Sodium Chloride 1,000 ML IV SCH ×2 (09:14→18:11)
[2016-09-07] MEDS ORDERED: GABA-502 PO (09:18)
[2016-09-07] MEDS: MeTOProlol XL 25 mg ER24 Tablet PO SCH (09:18)
[2016-09-07] MEDS ORDERED: PRE20 PO (09:18)
[2016-09-07] MEDS: Nystatin 100,000 Unit/mL 59 mL Suspension PO SCH ×3 (09:19→20:00)
[2016-09-07] MEDS: Omega-3 Fatty Acids 1,000 mg Capsule PO SCH (09:19)
--- NOTE | 2016-09-07 11:30 | NUR ---
Evaluation completed. Please go to "Notes" then click on "Assessments and Notes" (bottom left corner of screen). Then select appropriate discipline tab on top of screen.
--- NOTE | 2016-09-07 14:01 | NUR ---
Social Work-initial assessment: Data:See initial assessment. Pt is a 70 y/o male who was admitted on 09/07/16 for UTI and sepsis per H&P. Pt's insurance is [employer] and PCP is Hossein Darden MD. EMR reviewed. LORRIE met with pt and Blanca [phone] at bedside, SW role explained. Pt is alert and oriented x3. Pt resdies at home with his where he remains independent with ADLs. Pt uses a cane at baseline and has access to [facility] and W/c if needed. Pt has no history of HH or SNF. Pt has no care home care insurance or VA benefits. SW discussed DPOA/ advanced directive, pt confirms he has completed this, SW encouraged a copy to be brought in. PT has seen pt and recommended home with outpt PT services. order received for HH services. SW discussed HH services and pt states he will not be homebound at discharge and would prefer to do outpt services. Pt's confirms she will provide transport home at discharge. SW provided phone number and plan on white board in room. SW will continue to follow. Assessment:Pt who is independent at baseline. Plan:Pt to discharge home when medically stable via POV. Pt is declining HH would prefer outpt PT services. SW will continue to follow. JARVIS Driver Addendum: 09/07/16 at 1411 by FELICITA RICK SS Amended: Links added.
[2016-09-07] MEDS: Pantoprazole 40 mg ER24 Tablet PO SCH (16:47)
[2016-09-08 00:58] VITALS: BP 130/55; PULSE 55; RESP 18; O2SAT 96
[2016-09-08] MEDS: 0.9% Sodium Chloride 1,000 ML IV SCH (04:12)
[2016-09-08 04:47] VITALS: BP 131/51; PULSE 72; RESP 18; O2SAT 96
--- NOTE | 2016-09-08 05:24 | NUR ---
Pain Pt has reported his pain as manageable at a 1-2 all shift. Pt has been able to get up and into the bathroom with minimal increase in pain. Pt has slept well most of shift and has had no complaints.
[2016-09-08] MEDS: Nystatin 100,000 Unit/mL 59 mL Suspension PO SCH (08:30)
[2016-09-08 09:05] VITALS: BP 121/65; PULSE 71; RESP 18; O2SAT 95
[2016-09-08] MEDS: Omega-3 Fatty Acids 1,000 mg Capsule PO SCH (09:23)
[2016-09-08] MEDS: Pantoprazole 40 mg ER24 Tablet PO SCH (09:23)
[2016-09-08] MEDS: MeTOProlol XL 25 mg ER24 Tablet PO SCH (09:32)
[2016-09-08] MEDS: Lidocaine Topical 5% Patch TOPICAL SCH (09:35)
[2016-09-08 11:22] VITALS: PULSE 74
--- NOTE | 2016-09-08 12:07 | PCM.DIMED ---
Discharge Instructions Date of Service Sep 08, 2016 Dates of Hospitalization Sep 07, 2016 at 06:33 Discharge Diagnosis Discharge Diagnosis Back pain with radiculopathy Diet Discharge Diet: Heart Healthy Activity Discharge Activity: No restrictions Call your provider Call your provider for: Other (worsening back pain and weakness) Patient Instructions Follow-up plan Yourself off the medications as able. Naprosyn is concerning because of her history of GI bleed, lidocaine is pretty safe can only be worn 12 hours a day. Ultram is a "nonnarcotic-narcotic"so it is the least habit forming of the narcotics and if that works for you at his fine drug. You can also increase her gabapentin to up to 3 g a day but that can cause sedation and swelling. Follow up with [facility] for pain medicine issue can get in. Follow-up Provider: Hossein Darden MD Follow-up with PCP in: Other (call him know you are hospitalized not sure there is an indication to go into the office.) Nando Allen MD Sep 08, 2016 12:07
[2016-09-08] MEDS ORDERED: NAPR250T PO (12:15)
[2016-09-08] MEDS ORDERED: TRAM-14 PO (12:15)
[2016-09-08] MEDS ORDERED: LIDO700A6 TOPICAL (12:15)
[2016-09-08] MEDS ORDERED: ATOR40TA69 PO (12:15)
[2016-09-08] MEDS ORDERED: Acetaminophen PO (12:15)
--- NOTE | 2016-09-08 12:59 | NUR ---
Social Work: Discharge Data: Pt is on day 1 of hospitalization. EMR reviewed. D/C orders are in. No d/c planning needs at this time. PT recommending outpt PT at d/c. 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 Assessment: Pt who is independent at baseline. Plan: Pt will d/c home via POV today. No d/c planning needs at this time. PT recommending outpt PT at d/c. 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 JARVIS Dacosta
--- NOTE | 2016-09-08 13:42 | PCM.DC.MED ---
Discharge Summary Date of Service Sep 08, 2016 Dates of Hospitalization Date of Hospital Admission Sep 07, 2016 at 06:33 Date of Discharge: Sep 08, 2016 Providers: Admitting Physician: Ronnie Gutiérrez MD Primary Care Physician: Hossein Darden MD Attending Physician: Ronnie Gutiérrez MD Diagnosis at Time of Discharge Diagnosis at Time of Discharge Back pain with radiculopathy Consultations None Procedures XRay, CTs & MRIs MRI LUMBAR SPINE WITHOUT CONTRAST : Guy Hunt M.D. on 06/05/2016 at 14:19 1. A disc herniation is not present. 2. The degenerative disc disease along the lumbosacral spine is relatively mild but facet osteoarthritis is quite pronounced and results in both spinal and foraminal stenosis as discussed in detail by level in the body of the report above. Multilevel foraminal stenosis is present to the degree that there is risk for multilevel nerve root impingement. A discrete source of current asymmetric no right lower extremity weakness is not seen, however. 3. Postoperative distortion is present dorsal to the L34 and L4-5 levels of the lumbosacral spine. L4 laminectomy bilaterally appears to have been performed. Approved by: Guy Hunt M.D. on 06/05/2016 at 14:19 Brief History 70-year-old male who still works with chronic history of back pain. He had probably laminectomy in 2005 has chronic back pain for which she was hospitalized here in June. MRI did not show severe stenosis or spinal impingement at that point in time. He felt his back was hurting him yesterday evening, he took some pain meds and tried to go to bed and woke up in the middle of the night in agony and came into the emergency room. In the emergency room he received Dilaudid and Valium and that helped his pain however much to my surprise him and at this point time he is sitting up awake and telling me he is in pain. Patient denies any urinary symptoms. No fevers or chills. This legs are a little bit weak he has chronic neuropathy and the pain starts in his mid low back and radiates worse to the right than to the left down the outside of his right leg, around to the groin seems like a couple different levels as described. Patient has been battling this pain for some time he status post laminectomy/ fusion both lumbar spine 2004 and C-spine in 2010. He is being referred to [facility] "clinic of excellence" for further evaluation they called him last week to let them know that they were going to call him and schedule him with an appointment. He is a little bit frustrated because he cannot come soon enough. Hospital Course 70-year-old male being admitted 09/07 due to intractable back pain. He may additionally have a UTI although there is no sepsis at this point in time. 09/08 no evidence of sepsis or UTI this point in time. I am sending the patient home he is better I do not know how long this will last and I have told him this. With the regimen added of Tylenol, Lidoderm patch, Ultram, Naprosyn. Given him prescriptions and I encouraged him to go see the specialist at [facility] to see if there is something more that can be done for his spine. I have reiterated that I have done nothing other than to treat his symptoms and even that I wonder about because given the severity of his symptoms and his response to the medications given in the emergency room it seems unlikely that my interventions or so effective. He feels his pain is adequately controlled and they can go home. Discharging him. #Acute/chronic pain back with radicular symptoms -Adding routine Tylenol, Lidoderm patch, Ultram, Naprosyn (GI blled noted) PT eval -Continue gabapentin (not allergic) -Patient awaiting eval at [facility], he has a complex history locally we can mobilize and controlled his symptoms so that he can get there as I doubt there is a lot we can do for him here. #? UTI?-UA pretty benign, patient got dose Rocephin in ED 09/07, denies symptoms I am not inclined to continue treatment. CAD/HTN/lipids-continue metoprolol, aspirin, atorvastatin #GERD/Hx GI bleeding-continue PPI twice a day #Sleep apnea-home CPAP #Prophylaxis- DVT with SCDs/enoxaparin, GI on twice a day PPI #Disposition- from home, full code Exam Vital Signs (Last) Date Time Temp Pulse Resp B/P Pulse Ox O2 Delivery O2 Flow Rate FiO2 09/08/16 11:22 74 09/08/16 09:05 36.7 18 121/65 95 Room Air 09/07/16 17:14 4.00 Exam Gen.- A+ O 3 no apparent distress. Large heavyset male who is sitting up in bed Eyes- open conjunctiva clear, pupils equal nonicteric ENT- ears normal, nose normal Neck- supple/trach midline CVS-normal rate Lungs normal effort and rate nonlabored GI-generous pannus Musc- moving 4 no obvious deformity C-spine scar consistent with procedure, but good range of motion in the L spine scar consistent with procedure, tender as are his hips bilaterally right greater than left. Neuro- cranial nerves II through XII intact to gross examination, nonfocal Skin- warm and dry, no rashes/lesions/wounds noted Psych- pleasant and appropriate, Test 09/07/16 02:15 09/07/16 03:03 09/07/16 03:45 09/08/16 05:50 White Blood Count 10.7th/mm3 (3.8-10.1) Red Blood Count 4.68mil/mm3 (4.40-5.80) Hemoglobin 14.0g/dL (13.8-17.2) Hematocrit 41.1% (41.0-50.0) Mean Corpuscular Volume 87.8fL (81-100) Mean Corpuscular Hemoglobin 29.9pg (27.0-35.0) Mean Corpuscular Hemoglobin Concent 34.1% (32.0-37.0) Red Cell Distribution Width 13.8% (12.3-15.4) Platelet Count 144bil/L (150-400) Neutrophils (%) (Auto) 82.2% (40-74) Lymphocytes (%) (Auto) 7.9% (14-46) Monocytes (%) (Auto) 7.6% (4-12) Eosinophils (%) (Auto) 1.7% (0-5) Basophils (%) (Auto) 0.4% (0-3) Sodium Level 138mEq/L (134-144) Potassium Level 4.7mEq/L (3.5-5.2) Chloride Level 99mEq/L (97-108) Carbon Dioxide Level 21mmol/L (18-29) Blood Urea Nitrogen 16mg/dL (8-27) Creatinine 0.74mg/dL (0.76-1.27) Estimat Glomerular Filtration Rate 111mL/min (>59) Glucose Level 157mg/dL (60-99) Calcium Level 9.4mg/dL (8.5-10.1) Magnesium Level 1.6mg/dL (1.6-2.6) Total Bilirubin 0.6mg/dL (0.0-1.2) Aspartate Amino Transf (AST/SGOT) 29U/L (0-50) Alanine Aminotransferase (ALT/SGPT) 20U/L (0-44) Alkaline Phosphatase 104U/L (25-160) Troponin T 0.010ug/L (0.0-0.011) Total Protein 7.0g/dL (6.4-8.4) Albumin 4.2g/dL (3.4-5.0) Lactic Acid Level 2.0mmol/L (0.4-2.0) Urine Color Yellow (YELLOW) Urine Appearance Clear (CLEAR,HAZY) Urine pH 7.5 (5.0-8.0) Urine Specific [place] 1.015 (1.003-1.035) Urine Protein Negativemg/dL (NEG,TRACE) Urine Glucose (UA) Negativemg/dL (NEGATIVE) Urine Ketones Negativemg/dL (NEGATIVE) Urine Occult Blood Negative (NEGATIVE) Urine Nitrite Negative (NEGATIVE) Urine Bilirubin Negative (NEGATIVE) Urine Urobilinogen Normalmg/dL (NORMAL) Urine Leukocyte Esterase Trace (NEGATIVE) Urine RBC 0-2/hpf (0-2) Urine WBC 11-50/hpf (0-5) Urine Epithelial Cells Few/hpf (NONE-MOD) Urine Crystals None seen (NONE SEEN) Urine Bacteria Few/hpf (NONE-FEW) Urine Hyaline Casts None/lpf (NONE) Urine Granular Casts None seen (NONE SEEN) Urine Waxy Casts None seen (NONE SEEN) Urine Red Blood Cell Casts None seen (NONE SEEN) Urine White Blood Cell Casts None seen (NONE SEEN) Urine Mucus None seen (None Seen) Urine Trichomonas None seen (NONE SEEN) Urine Yeast None (NONE SEEN) Urinalysis Comment None Urine Culture Reflexed Indicated Procalcitonin 1.43ng/mL (0.00-0.08) Microbiology Results Urine/blood cultures normal 36 hours Discharge Medications Discharge Medications ([Acetaminophen]) 325 MG TABLET 975 MG PO TID Prescribed by: ASTER LU MD Aspirin (Aspirin) 81 Mg Tablet 81 MG PO DAILY (Reported) Atorvastatin Calcium (Atorvastatin Calcium) 40 Mg Tablet 80 MG PO HS Prescribed by: ASTER LU MD Cholecalciferol (Vitamin D3) (Vitamin D3) 5,000 Unit Capsule 5,000 UNIT PO DAILY (Reported) Gabapentin (Gabapentin) 300 Mg Capsule 300 MG PO TID (Reported) Garlic (Garlic) 1,000 Mg Capsule 2 CAPSULE PO DAILY (Reported) Lidocaine (Lidoderm) 700 Mg Adh..patch 1 PATCH TOPICAL DAILY Prescribed by: ASTER LU MD Metoprolol Succinate ER (Metoprolol Succinate ER) 25 Mg Tab.er.24h 25 MG PO DAILY (Reported) Naproxen (Naproxen) 250 Mg Tablet 500 MG PO BIDWM Prescribed by: ASTER LU MD Nystatin (Nystatin) 100,000 Unit/1 Ml Oral.susp 500,000 UNIT PO TID Prescribed by: CHECO GAN DO [place]-3/Dha/Epa/Fish Oil (Fish Oil 1,000 mg Softgel) 1 Each Capsule 1 EACH PO BID (Reported) Prednisone (PredniSONE) 20 Mg Tablet 20 MG PO DAILY (Reported) Tamsulosin (Flomax) 0.4 Mg Capsule 0.4 MG PO BID (Reported) Tramadol (Ultram) 50 Mg Tablet 100 MG PO TID Prescribed by: ASTER LU MD As needed Cyclobenzaprine (Cyclobenzaprine) 10 Mg Tablet 5-10 MG PO TID PRN PRN For Spasm Prescribed by: CHECO GAN DO Hydromorphone (Hydromorphone) 2 Mg Tablet 2 TABLET PO Q4H PRN PRN Pain (Reported ) Loratadine (Claritin) 10 Mg Capsule 10 MG PO DAILY PRN PRN allergies (Reported) Followup Plan Disposition: To home Follow-up plan Yourself off the medications as able. Naprosyn is concerning because of her history of GI bleed, lidocaine is pretty safe can only be worn 12 hours a day. Ultram is a "nonnarcotic-narcotic"so it is the least habit forming of the narcotics and if that works for you at his fine drug. You can also increase her gabapentin to up to 3 g a day but that can cause sedation and swelling. Follow up with [facility] for pain medicine issue can get in. Discharge Diet: Heart Healthy Discharge Activity: No restrictions Follow-up Provider: Hossein Darden MD Follow-up with PCP in: Other (call him know you are hospitalized not sure there is an indication to go into the office.) Time spent Greater than 30 minutes copies to: Hossein Darden MD, Andris E MD Sep 08, 2016 13:42
--- NOTE | 2016-09-08 14:45 | NUR ---
Discharge Nursing Note: Patient was discharged to home at 1445. His IV was removed intact. His telemetry was D/Cd. All of his discharge information was reviewed with him and his questions were answered to his satisfaction. Patient was brought in a wheelchair to the hospital lobby by nursing staff member and he was driven home by his .
--- NOTE | 2016-09-08 15:48 | NUR ---
spiritual care: pt request brief visit before discharge. contact with [facility] need already met.
== END 2016-09-08 14:45 | disposition home or self-care (01) ==
LOC: SED 02:10 → MPC 06:33 → INTOOBSV 06:33
PROVIDERS: ADMIT Hospitalist; ATTEND Hospitalist
DX: M54.10 Radiculopathy, site unspecified (principal); N39.0 Urinary tract infection, site not specified; I25.10 Atherosclerotic heart disease of native coronary artery without angina pectoris; I10 Essential (primary) hypertension; K21.9 Gastro-esophageal reflux disease without esophagitis; G47.30 Sleep apnea, unspecified; N40.0 Benign prostatic hyperplasia without lower urinary tract symptoms; R00.1 Bradycardia, unspecified; F32.9 Major depressive disorder, single episode, unspecified; E78.5 Hyperlipidemia, unspecified; M48.00 Spinal stenosis, site unspecified; Z95.5 Presence of coronary angioplasty implant and graft; Z87.442 Personal history of urinary calculi; Z79.82 Long term (current) use of aspirin; Z79.52 Long term (current) use of systemic steroids
CPT/HCPCS: 36415; 71010; 80053; 81000; 83605; 83735; 84145; 84484; 85025; 87040; 87086; 93005; 96361; 96365; 96375; 97161; 99285; G0378; J0696; J1650; J3010; J3360; J7030